=== PATIENT | male | born 1950 | race Caucasian/White ===

== ENCOUNTER 2018-08-04 19:58 | Inpatient (IN) ==
[2018-08-04] MEDS ORDERED: IOPAMIDOL 100 ML BOTTLE IV ONE (19:59)
[2018-08-04] MEDS ORDERED: HYDROmorphone 2 MG/ML VIAL IV PRN (20:24)
[2018-08-04] MEDS ORDERED: 0.9 % SODIUM CHLORIDE 1,000 ML IV ONE (20:24)
[2018-08-04] MEDS ORDERED: ONDANSETRON 4 MG/2 ML VIAL IV ONE (20:24)
--- NOTE | 2018-08-04 20:29 | Emergency Department Note ---
Abdominal Pain HPI - General Chief Complaint: Abdominal Pain Stated Complaint: Right side MidAbdominal pain Time Seen by Provider: 08/04/18 20:13 Source: patient Mode of arrival: ambulatory Limitations: no limitations - History of Present Illness HPI Narrative: 67-year-old male with right upper quadrant pain after eating a meal of steak and mashed potatoes with gravy. He had a stop eating secondary to nausea. He has never had anything like this before. The pain cause some gasping for breath and so we put him on oxygen. He is not on oxygen at home - Related Data Home Medications Medication Instructions Recorded Confirmed Apixaban [Eliquis] 5 mg PO HS 08/05/18 08/05/18 Dicyclomine 20 mg PO HS 08/05/18 08/05/18 Divalproex Sodium [Depakote] 250 mg PO HS 08/05/18 08/05/18 Ketoconazole 2% Top Crm [Nizoral 1 applic TOPICAL QDAY PRN 08/05/18 08/05/18 2% Top Crm] Previous Rx's Medication Instructions Recorded pravastatin 40 mg tablet 40 mg PO QHS #90 tab 01/19/18 pramipexole 0.25 mg tablet 0.25 mg PO QHS #90 tab 02/25/18 Allergies Allergy/AdvReac Type Severity Reaction Status Date / Time Penicillins Allergy Unknown Unknown Verified 08/04/18 20:03 Review of Systems All systems ED: reviewed and negative except as stated. Abdominal Pain PMH - Past Medical History Attestation: Yes: The following information was validated with the patient. FORMERLY [facility], [facility] Narrative: Family History (Last Reviewed 05/07/18 @ 09:54 by Steven Pacheco DO) Father Cardiac disease, Onset Age: 60 Medical History (Last Reviewed 05/07/18 @ 09:54 by Steven Pacheco DO) Venous insufficiency (Chronic) Sebaceous cyst (Chronic) Restless leg syndrome (Chronic) Developmental mental disorder (Chronic) DVT (deep venous thrombosis) (Chronic) Borderline diabetes mellitus (Chronic) Hyperlipidemia (Chronic) Learning disability (Chronic) Pilonidal cyst (Chronic) Hernia, umbilical (Chronic) Chronic obstructive pulmonary disease (Chronic 06/06/14) High risk 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 Wearing nasal cannula oxygen. Normocephalic atraumatic. Conjunctive are clear sclerae nonicteric. No nasal discharge or congestion. Oropharynx pink and moist. Heart is regular rate and rhythm no murmur appreciated. Lungs clear to auscultation bilaterally without wheezes rales rhonchi respirations rest. Abdomen is soft nontender nondistended except the right upper quadrant with positive Smallwood sign. No peritoneal signs or guarding. Left leg is normal but the right leg shows a chronic venous stasis changes with warmth and cord consistent with superficial thrombophlebitis. He is on apixaban per clinic note. He does mentate about the level of 7-year-old or so and so much history is obtained from family Course Vital Signs Temperature 99.6 F H 08/04/18 19:58 Pulse Rate 88 08/04/18 19:58 Respiratory Rate 20 08/04/18 19:58 Blood Pressure 130/69 08/04/18 19:58 Pulse Oximetry (%) 93 08/04/18 19:58 Temperature 97.9 F 08/05/18 08:00 Pulse Rate 67 08/05/18 08:00 Respiratory Rate 18 08/05/18 08:00 Blood Pressure 102/66 08/05/18 08:00 Pulse Oximetry (%) 92 08/05/18 08:00 Abdominal Pain - Lab Data Lab results reviewed: Yes I reviewed the patient's lab results. Result diagrams: 08/04/18 20:29 08/04/18 20:29 Lab Results 08/04/18 08/04/18 08/04/18 Range/Units 20:29 20:29 20:29 WBC 19.5 H (4.5-11.0) K/mcL RBC 4.99 (4.50-5.90) M/mcL Hgb 14.9 (13.5-16.5) g/dL Hct 45.2 (41.0-55.0) % MCV 90.5 (80.0-100.0) fL MCH 29.9 (26.0-34.0) pg MCHC 33.0 (31.0-36.0) g/dL RDW 14.5 (11.5-14.5) % Plt Count 236 (140-440) K/mcL MPV 8.6 (7.4-10.4) fL Gran % 86.9 H (38.0-78.0) % Lymph % (Auto) 6.6 L (15.5-49.0) % Hanson % (Auto) 5.5 (1.0-12.0) % Eos % (Auto) 0.8 (0.0-7.0) % Baso % (Auto) 0.2 (0.0-2.0) % Gran # 16.9 H (1.8-8.0) K/mcL Lymph # (Auto) 1.3 L (1.5-4.8) K/mcL Hanson # (Auto) 1.1 H (0.1-0.9) K/mcL Eos # (Auto) 0.2 (0.0-0.7) K/mcL Baso # (Auto) 0 (0.0-0.3) K/mcL VBG Lactic Acid 1.2 (0.5-2.0) mmol/L Sodium 140 (133-145) mmol/L Potassium 4.6 (3.3-5.1) mmol/L Chloride 105 (96-108) mmol/L Carbon Dioxide 22 (22-30) mmol/L Anion Gap 13.0 (8-16) BUN 23 (8-23) mg/dl Creatinine 1.2 (0.7-1.2) mg/dl GFR Calculation 63 Glucose 80 (70-105) mg/dL Calcium 9.2 (8.6-10.4) mg/dl Total Bilirubin 0.6 (0.0-1.0) mg/dL AST 21 (0-37) U/l ALT 12 (0-40) U/l Alkaline Phosphatase 113 (39-117) U/L Total Protein 7.7 (5.9-8.4) gm/dL Albumin 4.1 (3.2-5.2) gm/dL Globulin 3.6 (2.2-3.7) gm/dL Albumin/Globulin Ratio 1.1 (1.0-2.3) Amylase 58 (28-100) U/L Lipase 17 (7-60) U/L - Radiology Data Radiology results reviewed: Yes I reviewed the patient's radiology results. Ultrasound gallbladder shows sludge non-thickened muniz. Ultrasound of the right leg shows chronic nonocclusive DVT. When compared to previous no change Chest x-ray shows emphysematous changes and possibly new infiltrate left lower lung but this is equivocal. CT scan ordered to further sort this out in light of his hypoxia Disposition Pt seen by THREAD CHECKER/PA only: No Clinical Impression: RUQ pain Chronic obstructive pulmonary disease Qualifiers: COPD type: unspecified COPD Qualified Code(s): J44.9 - Chronic obstructive pulmonary disease, unspecified DVT (deep venous thrombosis) Qualifiers: DVT location: lower extremity Affected thrombotic vein of extremity: unspecified vein of extremity Chronicity: chronic Laterality: right Qualified Co de(s): I82.501 - Chronic embolism and thrombosis of unspecified deep veins of right lower extremity Cellulitis Qualifiers: Site of cellulitis: extremity Site of cellulitis of extremity: lower extremity Laterality: right Qualified Code(s): L03.115 - Cellulitis of right lower limb Summary: Likely cholecystitis versus upper GI issue like gastritis. Start pain management along with Zofran and IV fluids. Work-up with ultrasound of ga llbladder and liver along with laboratory. Coincidentally noted likely superficial thrombophlebitis versus cellulitis. Also noted patient is requiring oxygen to keep saturations up. Will order ultr asound of the right leg as well Ultrasound showed sludge of the gallbladder but no acute cholecystitis. Ultrasound of the right lower leg shows chronic DVT unchanged from previous Blood cultures and started antibiotics with clindamycin Chest x-ray is basically unrevealing except for perhaps mildly increased opacity left lower lung equivocal for perhaps mild pneumonia. CT scan is ordered for t his and hypoxia. He is requiring 2 L oxygen he still dropping down into the 80s. DuoNeb treatment ordered but this did not help much. CT scan does not show a reason for his hypoxia except for perhaps mild alveolitis. I gave him a dose of Solu-Medrol Laboratory shows a high white count 19 likely from cellulitis. Discussed with Dr. Knox, hospitalist who recommended that we change antibiotics to vancomycin and Zosyn. However he is allergic to penicillin so I added Levaquin instead After getting all his studies back we do not have a clear reason for his hypoxia which continues-he is requiring 4 L now at times to keep his sats above 90%. This does seem relatively stable and as noted above chest x-ray and CT scan are unrevealing except for mild COPD We will admit the patient to Dr. Knox for cellulitis. Continue oxygen therapy. I wrote holding orders Disposition: [facility]fer As [facility]pt ([facility]) Condition: Fair
[2018-08-04 21:28] LABS: Basophils # (Auto) 0 K/mcL (0.0-0.3); Basophils % (Auto) 0.2 % (0.0-2.0); Eosinophils # (Auto) 0.2 K/mcL (0.0-0.7); Eosinophils % (Auto) 0.8 % (0.0-7.0); Granulocytes % (Auto) 86.9 % (38.0-78.0); Hematocrit 45.2 % (41.0-55.0); Hemoglobin 14.9 g/dL (13.5-16.5); Lymphocytes # (Auto) 1.3 K/mcL (1.5-4.8); Lymphocytes % (Auto) 6.6 % (15.5-49.0); Mean Cell Volume 90.5 fL (80.0-100.0); Mean Platelet Volume 8.6 fL (7.4-10.4); Monocytes # (Auto) 1.1 K/mcL (0.1-0.9); Monocytes % (Auto) 5.5 % (1.0-12.0); Platelet Count 236 K/mcL (140-440); RBC 4.99 M/mcL (4.50-5.90); Red Cell Distribution Width 14.5 % (11.5-14.5); WBC 19.5 K/mcL (4.5-11.0)
[2018-08-04 21:45] LABS: ALT/SGPT 12 U/l (0-40); AST/SGOT 21 U/l (0-37); Albumin 4.1 gm/dL (3.2-5.2); Albumin/Globulin Ratio 1.1 (1.0-2.3); Alkaline Phosphatase 113 U/L (39-117); Amylase 58 U/L (28-100); Bilirubin,Total 0.6 mg/dL (0.0-1.0); Blood Urea Nitrogen 23 mg/dl (8-23); Calcium 9.2 mg/dl (8.6-10.4); Carbon Dioxide 22 mmol/L (22-30); Chloride 105 mmol/L (96-108); Globulin 3.6 gm/dL (2.2-3.7); Glomerular Filtration Rate 63; Glucose 80 mg/dL (70-105); Lipase 17 U/L (7-60); Potassium 4.6 mmol/L (3.3-5.1); Sodium 140 mmol/L (133-145)
[2018-08-04] MEDS ORDERED: CLINDAMYCIN 150 MG CAPSULE PO ONE (21:55)
[2018-08-04] MEDS ORDERED: IPRATROPIUM/ALBUTEROL 3 ML AMPUL.NEB NEB ONE (22:21)
[2018-08-04] MEDS ORDERED: methylPREDNISolone SOD SUCC 125 MG/2 ML VIAL IV ONE (23:58)
[2018-08-05] MEDS ORDERED: VANCOMYCIN 1,000 MG in 0.9 % SODIUM CHLORIDE 250 ML IV ONE (00:18)
[2018-08-05] MEDS ORDERED: ONDANSETRON 4 MG/2 ML VIAL IV PRN (00:20)
[2018-08-05] MEDS ORDERED: HYDROcodone/APAP 5/325MG TABLET PO PRN (00:20)
[2018-08-05] MEDS ORDERED: NALOXONE HCL 0.4 MG/ML VIAL IV PRN (00:20)
[2018-08-05] MEDS: 0.9 % SODIUM CHLORIDE 1,000 ML IV SCH ×3 (02:17→19:05)
[2018-08-05] MEDS: LEVOFLOXACIN 500 MG/100 ML BAG IV SCH (02:30)
[2018-08-05] MEDS: ACETAMINOPHEN 325 MG TABLET PO PRN ×2 (02:59→20:52)
--- NOTE | 2018-08-05 07:48 | Ultrasound Report ---
History: Right upper quadrant pain after eating FINDINGS: The liver is normal in size. High in the right lobe there is a well-circumscribed oval-shaped hyperechoic nodule which measures 0.6 x 0.7 x 1.2 cm. The remainder of the liver is homogeneous. Doppler shows normal blood flow in the hepatic and portal veins. Gallbladder is normal in size but contains some sludge. There are no stones. The wall is normal in thickness and there is no tenderness while scanning over the gallbladder. The bile ducts are normal in caliber and the common duct measures 4.2 mm. The right kidney is normal in size shape and echogenicity and there is no kidney stone or hydronephrosis. The pancreas is obscured by overlying bowel gas. No ascites is seen. IMPRESSION: Sludge in the gallbladder 1.2 cm nodule in the right lobe of liver. This is probably a hemangioma. This could be further evaluated by an upper abdomen CT using hemangioma protocol and intravenous contrast. Interpreted and Authenticated by: Javon Edouard 08/05/18
--- NOTE | 2018-08-05 08:01 | Ultrasound Report ---
History: Superficial thrombophlebitis and history of chronic clot FINDINGS: There is thrombus in the right leg from the mid superficial femoral vein to the proximal popliteal vein. The vessels are not completely occluded. There appears to have been partial recanalization. The proximal superficial femoral and common femoral veins are normal. Distal popliteal vein is normal. There is good blood flow in the calf. Greater and lesser saphenous veins are patent. IMPRESSION: Chronic, nonocclusive organized clot from the mid superficial femoral vein to the proximal popliteal vein Interpreted and Authenticated by: Javon Edouard 08/05/18
--- NOTE | 2018-08-05 08:06 | XRay Report ---
HISTORY: COPD with shortness of breath FINDINGS: Lateral view shows the lungs are mildly hyperinflated. There are mildly prominent increased interstitial lung markings bilaterally. There is no consolidating infiltrate, mass or congestive heart failure. No pleural effusion is present. The heart is borderline enlarged. The aorta is tortuous. The spine has a kyphoscoliotic curvature. IMPRESSION: Mild COPD. There may be superimposed interstitial inflammation. Interpreted and Authenticated by: Javon Edouard 08/05/18
--- NOTE | 2018-08-05 08:16 | Cat Scan Report ---
CLINICAL INFORMATION: Hypoxia COMPARISON: None TECHNIQUE: Axial images obtained through the chest. intravenous contrast administration was administered, and scanning was performed during pulmonary arterial phase. Sagittally and coronally reformatted images were obtained. MIP reformatted images. The radiation exposure was limited using dose reduction technology. FINDINGS: There is very mild centrilobular emphysema in both lung apices. Subtle groundglass alveolar opacities are present in the lingula and left upper lobe. There is no lobar consolidation. There are small bands of atelectasis in the posterior lung bases, left greater than right. The central pulmonary arteries are normal without evidence of emboli. Some of the smaller peripheral vessels are more difficult to visualize but there is no obvious pulmonary embolus. The aorta is normal in caliber. There are couple small plaques along the wall of the arch. Coronary arteries are noncalcified. The heart is borderline enlarged. There is no pericardial or pleural effusion. Incidentally noted are several paraesophageal varices in the mid and upper thorax. IMPRESSION: Mild COPD and mild alveolitis in the left upper lobe and lingula Mild discoid atelectasis in the posterior lung bases No evidence of pulmonary emboli Borderline cardiomegaly Interpreted and Authenticated by: Javon Edouard 08/05/18
--- NOTE | 2018-08-05 09:54 | Internal Med History&Physical ---
Medical - H&P: HPI Patient information: Note initiated : 08/05/18 at 9:48 am Service Date, if different from initiated Date: [] Patient: Tobias Richards a 67 y/o M admitted on 08/05/18 for Right side MidAbdominal pain. Chief Complaint: [] Chief complaint: cough, Rt Flank pain History of present illness: Mr. Richards is a 67 year old M with H/o DVT on anticoagulation, COPD who presents to the ER with 2 days' onset of cough along with right lower chest/flank pain. He denied associated fever or palpitations or chills. Endorses to gradual progressive shortness of breath along with you per sputum. Denies sick contacts or changes in medications. Initial workup in the ER was consistent with sepsis with an clear etiology with a white count 19.5. Renal ultrasound/chest. Remarkable for acute process. Hospitalist service was consulted in light of sepsis of unclear origin. At the time of evaluation patient is alert and oriented. He endorses to history as above. Denies drenching sweats, shaking chills, dysuria, diarrhea, rash or joint pain he further denies headache, photophobia, projectile vomiting. He denies sick contacts. Denies travel outside the [place] or unprotected sexual intercourse. He lives with his girlfriend. Review of systems A 10 point review systems was performed and is negative except as discussed above Medical - H&P: PMH Medical history: Venous insufficiency (Chronic) Sebaceous cyst (Chronic) Restless leg syndrome (Chronic) Developmental mental disorder (Chronic) DVT (deep venous thrombosis) (Chronic) 05/02/2015-[place] Borderline diabetes mellitus (Chronic) a1c is 5.1 07/01/16, down from 5.8, low carb diet, good physical activity advised. Hyperlipidemia (Chronic) LDL is 109, goal LDL < 130, on pravastatin 40 continue same. CMP ok, tolerating medication well. 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 [employer] smoking status: Former smoker quit date: 04/15/15 pack-years: 26 alcohol intake frequency: former alcohol drinker substance use type: does not use Medical - H&P: Meds Home Medications Medication Instructions Recorded Confirmed Type pravastatin 40 mg tablet 40 mg PO QHS #90 tab 01/19/18 08/05/18 Rx pramipexole 0.25 mg tablet 0.25 mg PO QHS #90 tab 02/25/18 08/05/18 Rx Apixaban [Eliquis] 5 mg PO HS 08/05/18 08/05/18 History Dicyclomine 20 mg PO HS 08/05/18 08/05/18 History Divalproex Sodium [Depakote] 250 mg PO HS 08/05/18 08/05/18 History Ketoconazole 2% Top Crm [Nizoral 1 applic TOPICAL QDAY PRN 08/05/18 08/05/18 History 2% Top Crm] Allergies Allergy/AdvReac Type Severity Reaction Status Date / Time Penicillins Allergy Unknown Unknown Verified 08/04/18 20:03 Medical - H&P: Exam - Constitutional Vitals: Temp Pulse Resp BP Pulse Ox 97.9 F 67 18 102/66 92 08/05/18 08:00 08/05/18 08:00 08/05/18 08:00 08/05/18 08:00 08/05/18 08:00 General appearance: no acute distress Exam: Alert and oriented Nonlabored breathing Head normocephalic Neck nolymphadenopathy Oral cavity dry no ear or nose discharge S1 and S2 regular rhythm no murmur Diminished breath sounds bases abdomen soft nontender Lower extremity no cyanosis clubbing or joint swelling , bright lower extremity excoriated skin/xerosis around the ankle but no erythema or discharge Skin no suspicious lesion Psych alert cooperative Neuro nonfocal Medical - H&P: Reslt - Labs CBC & Chem 7: 08/04/18 20:29 08/04/18 20:29 Labs: Short CBC 08/04/18 Range/Units 20:29 WBC 19.5 H (4.5-11.0) K/mcL Hgb 14.9 (13.5-16.5) g/dL Hct 45.2 (41.0-55.0) % Plt Count 236 (140-440) K/mcL BMP 08/04/18 20:29 Sodium 140 Potassium 4.6 Chloride 105 Carbon Dioxide 22 BUN 23 Creatinine 1.2 Glucose 80 Calcium 9.2 Liver Function 08/04/18 Range/Units 20:29 Total Bilirubin 0.6 (0.0-1.0) mg/dL AST 21 (0-37) U/l ALT 12 (0-40) U/l Alkaline Phosphatase 113 (39-117) U/L Albumin 4.1 (3.2-5.2) gm/dL Medical - H&P: A/P (1) Sepsis associated hypotension Current visit: Yes Status: Acute * Sepsis associated with hypotension-clinically improving crystalloids and management per guidelines/antibiotic coverage. Unclear etiology based on abdominal ultrasound/CT. Await UA * COPD exacerbation continue bronchodilators/steroids * History of DVT continue anti-coagulation * Hyperlipidemia continue statin * Restless leg syndrome continue pramipexole * Left ankle xerosis/excoriated skin-local emollients/wound care nurse consult * Full code * Prophylaxis-anticoagulation Plan * Inpatient admission * Antibiotic coverage * Sepsis management per guidelines * Prior medical condition management as above * PT OT/wound care nurse consult Medical - H&P: Qual - VTE Deep Vein Thrombosis/Pulmonary Embolism Present on Admission: Yes
[2018-08-05] MEDS: APIXABAN 5 MG TABLET PO SCH ×2 (11:02→20:51)
[2018-08-05] MEDS: predniSONE 20 MG TABLET PO SCH (11:02)
[2018-08-05] MEDS: IPRATROPIUM/ALBUTEROL 3 ML AMPUL.NEB NEB SCH ×4 (11:59→22:18)
[2018-08-05] MEDS: BUDESONIDE 0.5 MG/2 ML AMPUL.NEB NEB SCH ×3 (12:00→19:27)
[2018-08-05 13:31] LABS: Appearance,Urine CLEAR; Bacteria,Urine 0 /hpf (0); Bilirubin,Urine NEG (NEG); Color,Urine YELLOW; Glucose,Urine (UA) NEGATIVE (NEG); Ketones,Urine NEG (NEG); Leukocyte Esterase,Urine NEG /uL (NEG); Nitrate,Urine NEG (NEG); Protein,Urine NEG (NEG); Urine Blood 0.03 mg/dL (<0.03); Urine RBC < 1 /hpf (0-1); Urine Squamous Epithelial Cell 0 /hpf (0-4); Urine WBC 1 /hpf (0-4); Urobilinogen,Urine NEG (NEG)
[2018-08-05] MEDS ORDERED: BUDESONIDE 0.5 MG/2 ML AMPUL.NEB NEB ONE (14:45)
[2018-08-05] MEDS: SIMVASTATIN 20 MG TABLET PO SCH (20:51)
[2018-08-05] MEDS: DIVALPROEX 125 MG CAP.SPRINK PO SCH (20:52)
[2018-08-05] MEDS: DICYCLOMINE 20 MG TABLET PO SCH (20:52)
[2018-08-05] MEDS: PRAMIPEXOLE 0.25 MG TABLET PO SCH (20:55)
[2018-08-05] MEDS ORDERED: traZODone HCL 50 MG TABLET PO ONE (22:40)
[2018-08-05] MEDS ORDERED: traZODone HCL 50 MG TABLET ONE (22:46)
[2018-08-06] MEDS: LEVOFLOXACIN 500 MG/100 ML BAG IV SCH (00:34)
[2018-08-06] MEDS: IPRATROPIUM/ALBUTEROL 3 ML AMPUL.NEB NEB SCH ×4 (03:01→19:00)
[2018-08-06] MEDS: 0.9 % SODIUM CHLORIDE 1,000 ML IV SCH ×2 (05:38→18:03)
[2018-08-06 06:34] LABS: Hematocrit 37.4 % (41.0-55.0); Hemoglobin 12.4 g/dL (13.5-16.5); Mean Corpuscular HGB Conc 33.1 g/dL (31.0-36.0); Mean Platelet Volume 8.4 fL (7.4-10.4); Platelet Count 184 K/mcL (140-440); RBC 4.06 M/mcL (4.50-5.90); Red Cell Distribution Width 14.5 % (11.5-14.5); WBC 23.1 K/mcL (4.5-11.0)
[2018-08-06 06:48] LABS: ALT/SGPT 11 U/l (0-40); AST/SGOT 16 U/l (0-37); Albumin 3.1 gm/dL (3.2-5.2); Albumin/Globulin Ratio 1.1 (1.0-2.3); Alkaline Phosphatase 85 U/L (39-117); Bilirubin,Direct < 0.2 mg/dL (0.0-0.3); Bilirubin,Total 0.3 mg/dL (0.0-1.0); Blood Urea Nitrogen 16 mg/dl (8-23); Calcium 8.3 mg/dl (8.6-10.4); Carbon Dioxide 19 mmol/L (22-30); Chloride 110 mmol/L (96-108); Globulin 2.9 gm/dL (2.2-3.7); Glomerular Filtration Rate 89; Glucose 85 mg/dL (70-105); Lactate Dehydrogenase 225 U/L (94-250); Magnesium 1.7 mg/dL (1.6-2.5); Phosphorous 2.8 mg/dL (2.7-4.5); Potassium 4.2 mmol/L (3.3-5.1); Sodium 141 mmol/L (133-145); Triglycerides 55 mg/dl (<150); Uric Acid 4.4 mg/dL (2.5-8.0)
[2018-08-06] MEDS: BUDESONIDE 0.5 MG/2 ML AMPUL.NEB NEB SCH ×2 (07:36→19:00)
[2018-08-06] MEDS: predniSONE 20 MG TABLET PO SCH (08:13)
[2018-08-06] MEDS: APIXABAN 5 MG TABLET PO SCH ×2 (08:13→21:11)
[2018-08-06 08:27] LABS: Anisocytosis FEW (NONE SEEN); Band Neutrophils % 2 % (0-10); Lymphocytes % 6 % (15-49); Monocytes % (Manual) 6 % (1-12); Platelet Estimate NORMAL (NORMAL); RBC Morphology ABNORM (NORMAL); Segmented Neutrophils % 86 % (38-78)
--- NOTE | 2018-08-06 10:27 | Internal Med Progress Note ---
Medical - PN: Subj Patient information: Note initiated : 08/06/18 at 10:23 am Service Date, if different from initiated Date: [] Patient: Tobias Richards a 67 y/o M admitted on 08/05/18 for Right side MidAbdominal pain. Chief Complaint: [] Interval history: Mr. Richards is a 67 year old M with H/o developmental delay, DVT on anticoagulation, COPD who presents to the ER with 2 days' onset of cough along with right lower chest/flank pain. He denied associated fever or palpitations or chills. Endorses to gradual progressive shortness of breath along with you per sputum. Denies sick contacts or changes in medications. Initial workup in the ER was consistent with sepsis with an clear etiology with a white count 19.5. Renal ultrasound/chest. Remarkable for acute process. Hospitalist service was consulted in light of sepsis of unclear origin. At the time of evaluation patient is alert and oriented. He endorses to history as above. Denies drenching sweats, shaking chills, dysuria, diarrhea, rash or joint pain he further denies headache, photophobia, projectile vomiting. He denies sick contacts. Denies travel outside the [place] or unprotected sexual intercourse. He lives with his girlfriend. 08/06-patient did remarkably well in the last 24 hours, bronchodilators, steroids. Much improved breathing. willing to participate in physical therapy. Ongoing bronchodilator treatments. However elevated white count of 20,000 likely secondary to steroid. Afebrile. No overnight concerns per nursing staff. No telemetry events. Denies flank pain, shaking chills. Chest pain resolved. - Constitutional Vitals: Vital Signs Temp Pulse Resp BP Pulse Ox 97.7 F 72 16 127/84 94 08/06/18 07:27 08/06/18 07:39 08/06/18 07:39 08/06/18 07:27 08/06/18 07:50 Period Temp Pulse Resp BP Sys/Morley Pulse Ox Last 24 Hr 97.7 F-99.0 F 66-74 16-24 96-127/58-84 91-97 Intake and Output 08/05/18 08/06/18 08/06/18 21:59 05:59 13:59 Intake Total 905 1750 Output Total 1225 350 900 Balance -320 1400 -900 Weight 135 lb Intake & Output: Intake & Output 08/05/18 08/06/18 08/06/18 21:59 05:59 13:59 Intake Total 905 1750 Output Total 1225 350 900 Balance -320 1400 -900 Weight 135 lb Intake: IV 805 1100 Sodium Chloride 0.9% 1,000 ml @ 805 1000 100 mls/hr IV .Q10H PERRI Rx#: [id number] Oral 100 650 Output: Void Amount 1225 350 900 Other: Urine Appearance Clear Clear Clear Urine Color Dark Yellow Bright Yellow Light Odalys Urine Odor Normal Normal # Voids 1 General appearance: no acute distress Exam: Alert and pleasant Nonlabored breathing, no rhonchi S1-S2 regular rhythm Abdomen soft No anxiety Medical - PN: Obj Da - Labs CBC & Chem 7: 08/06/18 04:05 08/06/18 04:05 Labs: Abnormal Lab Results 08/06/18 08/06/18 08/05/18 04:05 04:05 12:50 WBC 23.1 H RBC 4.06 L Hgb 12.4 L Hct 37.4 L Gran % Lymph % (Auto) Gran # Lymph # (Auto) Nolan # (Auto) Seg Neutrophils % 86 H Lymphocytes % 6 L RBC Morphology Abnorm A Anisocytosis Few A Chloride 110 H Carbon Dioxide 19 L Calcium 8.3 L Albumin 3.1 L Urine Occult Blood 0.03 A 08/04/18 20:29 WBC 19.5 H RBC Hgb Hct Gran % 86.9 H Lymph % (Auto) 6.6 L Gran # 16.9 H Lymph # (Auto) 1.3 L Nolan # (Auto) 1.1 H Seg Neutrophils % Lymphocytes % RBC Morphology Anisocytosis Chloride Carbon Dioxide Calcium Albumin Urine Occult Blood Meds: Medications Acetaminophen (Tylenol) 650 mg PO Q6HP PRN PRN Reason: PAIN/FEVER > 101 Last Admin: 08/05/18 20:52 Dose: 650 mg Documented by: Hydrocodone Bitart/Acetaminophen ([place] 5/325mg) 1 tab PO Q4HP PRN PRN Reason: PAIN LEVEL 3-6 Albuterol/Ipratropium (Duoneb) 3 ml NEB Q6HRT [facility] Apixaban (Eliquis) 5 mg PO BID [facility] Last Admin: 08/06/18 08:13 Dose: 5 mg Documented by: Budesonide (Pulmicort) 0.5 mg NEB Q12 [facility] Last Admin: 08/06/18 07:36 Dose: 0.5 mg Documented by: Dicyclomine HCl (Dicyclomine) 20 mg PO [facility] Last Admin: 08/05/18 20:52 Dose: 20 mg Documented by: Divalproex Sodium (Depakote Sprinkles) 250 mg PO [facility] Last Admin: 08/05/18 20:52 Dose: 250 mg Documented by: Levofloxacin (Levaquin) 500 mg in 100 mls @ 100 mls/hr IV Q24H [facility] Last Infusion: 08/06/18 05:38 Dose: Infused Documented by: Sodium Chloride (Sodium Chloride 0.9%) 1,000 mls @ 100 mls/hr IV .Q10H [facility] Last Admin: 08/06/18 05:38 Dose: 100 mls/hr Documented by: Naloxone HCl (Narcan) 0.1 mg IV Q2MIN PRN PRN Reason: Opiate Reversal Ondansetron HCl (Zofran) 4 mg IV Q4HP PRN PRN Reason: Nausea And Vomiting Pramipexole Dihydrochloride (Mirapex) 0.25 mg PO [facility] Last Admin: 08/05/18 20:55 Dose: Not Given Documented by: Prednisone (Prednisone) 40 mg PO [facility] Last Admin: 08/06/18 08:13 Dose: 40 mg Documented by: Simvastatin (Zocor) 20 mg PO [facility] Last Admin: 08/05/18 20:51 Dose: 20 mg Documented by: Medical - PN: A/P - Time Spent With Patient Total time spent is greater than 50% in coordination of care (as documented) at patient's floor/unit and/or counseling patient: 25 - 35 minutes (1) Sepsis associated hypotension Status: Acute Assessment and plan: * COPD exacerbation remarkable clinical improvement noted on bronchodilators/steroids * Hypoxic respiratory failure currently and 2.5 L oxygen. Improved with bronchodilators and steroids. * Leukocytosis likely secondary to steroids * History of DVT continue anti-coagulation * Hyperlipidemia continue statin * Restless leg syndrome continue pramipexole * Left ankle xerosis/excoriated skin-local emollients/wound care nurse on board * Full code Plan * Continue steroids and bronchodilators * PT OT * Anticoagulation * Pre-existing medical condition management and home meds * DC planning Current Visit: Yes Medical - PN: Qual - VTE Deep Vein Thrombosis/Pulmonary Embolism Present on Admission: Yes
[2018-08-06] MEDS: DIVALPROEX 125 MG CAP.SPRINK PO SCH (21:11)
[2018-08-06] MEDS: DICYCLOMINE 20 MG TABLET PO SCH (21:11)
[2018-08-06] MEDS: rOPINIRole 0.25 MG TABLET PO SCH (21:11)
[2018-08-06] MEDS: SIMVASTATIN 20 MG TABLET PO SCH (21:11)
[2018-08-06] MEDS: PRAMIPEXOLE 0.25 MG TABLET PO SCH (21:12)
[2018-08-07] MEDS: LEVOFLOXACIN 500 MG/100 ML BAG IV SCH ×2 (00:10→15:48)
[2018-08-07] MEDS: IPRATROPIUM/ALBUTEROL 3 ML AMPUL.NEB NEB SCH ×3 (01:02→12:27)
[2018-08-07] MEDS: 0.9 % SODIUM CHLORIDE 1,000 ML IV SCH ×3 (05:32→17:25)
[2018-08-07 05:53] LABS: Hematocrit 37.7 % (41.0-55.0); Hemoglobin 12.4 g/dL (13.5-16.5); Mean Cell Volume 92.6 fL (80.0-100.0); Mean Platelet Volume 8.4 fL (7.4-10.4); Platelet Count 195 K/mcL (140-440); RBC 4.07 M/mcL (4.50-5.90); Red Cell Distribution Width 14.8 % (11.5-14.5); WBC 17.9 K/mcL (4.5-11.0)
[2018-08-07 06:14] LABS: ALT/SGPT 15 U/l (0-40); AST/SGOT 19 U/l (0-37); Albumin 3.2 gm/dL (3.2-5.2); Albumin/Globulin Ratio 1.1 (1.0-2.3); Alkaline Phosphatase 83 U/L (39-117); Bilirubin,Direct < 0.2 mg/dL (0.0-0.3); Bilirubin,Total 0.2 mg/dL (0.0-1.0); Blood Urea Nitrogen 13 mg/dl (8-23); Calcium 8.5 mg/dl (8.6-10.4); Carbon Dioxide 21 mmol/L (22-30); Chloride 109 mmol/L (96-108); Globulin 2.9 gm/dL (2.2-3.7); Glomerular Filtration Rate 93; Glucose 82 mg/dL (70-105); Lactate Dehydrogenase 184 U/L (94-250); Magnesium 1.7 mg/dL (1.6-2.5); Phosphorous 2.9 mg/dL (2.7-4.5); Potassium 3.9 mmol/L (3.3-5.1); Sodium 142 mmol/L (133-145); Triglycerides 52 mg/dl (<150); Uric Acid 4.2 mg/dL (2.5-8.0)
--- NOTE | 2018-08-07 08:03 | Internal Med Progress Note ---
Medical - PN: Subj Patient information: Note initiated : 08/07/18 at 8:01 am Service Date, if different from initiated Date: [] Patient: Tobias Richards a 67 y/o M admitted on 08/05/18 for Right side MidAbdominal pain. Chief Complaint: [] Interval history: Mr. Richards is a 67 year old M with H/o developmental delay, DVT on anticoagulation, COPD who presents to the ER with 2 days' onset of cough along with right lower chest/flank pain. He denied associated fever or palpitations or chills. Endorses to gradual progressive shortness of breath along with you per sputum. Denies sick contacts or changes in medications. Initial workup in the ER was consistent with sepsis with an clear etiology with a white count 19.5. Renal ultrasound/chest. Remarkable for acute process. Hospitalist service was consulted in light of sepsis of unclear origin. At the time of evaluation patient is alert and oriented. He endorses to history as above. Denies drenching sweats, shaking chills, dysuria, diarrhea, rash or joint pain he further denies headache, photophobia, projectile vomiting. He denies sick contacts. Denies travel outside the [place] or unprotected sexual intercourse. He lives with his girlfriend. 08/06-patient did remarkably well in the last 24 hours, bronchodilators, steroids. Much improved breathing. willing to participate in physical therapy. Ongoing bronchodilator treatments. However elevated white count of 20,000 likely secondary to steroid. Afebrile. No overnight concerns per nursing staff. No telemetry events. Denies flank pain, shaking chills. Chest pain resolved. 08/07-patient doing remarkably better. No shortness of breath, fever. White count down from 23.1-17.9. On 2 L nasal cannula. Continue PT OT. Anticipate discharge in 24 hours if continues to improve. Continue levofloxacin for additional 3 days - Constitutional Vitals: Vital Signs Temp Pulse Resp BP Pulse Ox 98.8 F 78 14 124/75 94 08/07/18 07:35 08/07/18 04:00 08/07/18 07:35 08/07/18 07:35 08/07/18 07:35 Period Temp Pulse Resp BP Sys/[place] Pulse Ox Last 24 Hr 97.9 F-98.8 F 67-90 14-22 110-124/61-80 91-94 Intake and Output 08/06/18 08/07/18 08/07/18 21:59 05:59 13:59 Intake Total 1800 1600 100 Output Total 900 1700 Balance 900 -100 100 Weight 140 lb 8 oz Intake & Output: Intake & Output 08/06/18 08/07/18 08/07/18 21:59 05:59 13:59 Intake Total 1800 1600 100 Output Total 900 1700 Balance 900 -100 100 Weight 140 lb 8 oz Intake: IV 1000 1000 100 Sodium Chloride 0.9% 1,000 ml @ 1000 1000 100 mls/hr IV .Q10H [facility] Rx#: [id number] Oral 800 600 Output: Void Amount 900 1700 Other: Meal Dinner Percent of Meal Consumed 100% Feeding Ability Assist with Tray Set Up Urine Color Pale Pale Urine Odor Normal Normal General appearance: no acute distress Exam: Alert oriented Nonlabored breathing No anxiety No lymphedema Medical - PN: Obj Da - Labs CBC & Chem 7: 08/07/18 04:12 08/07/18 04:10 Labs: Abnormal Lab Results 08/07/18 08/07/18 08/06/18 04:12 04:10 04:05 WBC 17.9 H RBC 4.07 L Hgb 12.4 L Hct 37.7 L RDW 14.8 H Gran % Lymph % (Auto) Gran # Lymph # (Auto) [place] # (Auto) Seg Neutrophils % Lymphocytes % RBC Morphology Anisocytosis Chloride 109 H 110 H Carbon Dioxide 21 L 19 L Calcium 8.5 L 8.3 L Albumin 3.1 L Urine Occult Blood 08/06/18 08/05/18 08/04/18 04:05 12:50 20:29 WBC 23.1 H 19.5 H RBC 4.06 L Hgb 12.4 L Hct 37.4 L RDW Gran % 86.9 H Lymph % (Auto) 6.6 L Gran # 16.9 H Lymph # (Auto) 1.3 L [place] # (Auto) 1.1 H Seg Neutrophils % 86 H Lymphocytes % 6 L RBC Morphology Abnorm A Anisocytosis Few A Chloride Carbon Dioxide Calcium Albumin Urine Occult Blood 0.03 A Meds: Medications Acetaminophen (Tylenol) 650 mg PO Q6HP PRN PRN Reason: PAIN/FEVER > 101 Last Admin: 08/05/18 20:52 Dose: 650 mg Documented by: Hydrocodone Bitart/Acetaminophen ([place] 5/325mg) 1 tab PO Q4HP PRN PRN Reason: PAIN LEVEL 3-6 Albuterol/Ipratropium (Duoneb) 3 ml NEB Q6HRT [facility] Last Admin: 08/07/18 01:02 Dose: 3 ml Documented by: Apixaban (Eliquis) 5 mg PO BID [facility] Last Admin: 08/06/18 21:11 Dose: 5 mg Documented by: Budesonide (Pulmicort) 0.5 mg NEB Q12 [facility] Last Admin: 08/06/18 19:00 Dose: 0.5 mg Documented by: Dicyclomine HCl (Dicyclomine) 20 mg PO [facility] Last Admin: 08/06/18 21:11 Dose: 20 mg Documented by: Divalproex Sodium (Depakote Sprinkles) 250 mg PO [facility] Last Admin: 08/06/18 21:11 Dose: 250 mg Documented by: Sodium Chloride (Sodium Chloride 0.9%) 1,000 mls @ 100 mls/hr IV .Q10H [facility] Last Admin: 08/07/18 05:32 Dose: 100 mls/hr Documented by: Levofloxacin (Levaquin) 500 mg in 100 mls @ 100 mls/hr IV Q24H [facility] Naloxone HCl (Narcan) 0.1 mg IV Q2MIN PRN PRN Reason: Opiate Reversal Ondansetron HCl (Zofran) 4 mg IV Q4HP PRN PRN Reason: Nausea And Vomiting Pramipexole Dihydrochloride (Mirapex) 0.25 mg PO [facility] Last Admin: 08/06/18 21:12 Dose: Not Given Documented by: Prednisone (Prednisone) 40 mg PO [facility] Last Admin: 08/06/18 08:13 Dose: 40 mg Documented by: Ropinirole HCl (Requip) 0.25 mg PO [facility] Last Admin: 08/06/18 21:11 Dose: 0.25 mg Documented by: Simvastatin (Zocor) 20 mg PO [facility] Last Admin: 08/06/18 21:11 Dose: 20 mg Documented by: Medical - PN: A/P - Time Spent With Patient Total time spent is greater than 50% in coordination of care (as documented) at patient's floor/unit and/or counseling patient: 15 - 24 minutes (1) Sepsis associated hypotension Status: Acute Assessment and plan: * COPD exacerbation - continued clinical improvement noted with treatments on bronchodilators/steroids. Continue additional 3 days Levaquin * Hypoxic respiratory failure- gradual clinical improvement and now on 2 L oxygen. Attempt to wean. Scheduled outpatient pulmonary function tests on discharge * Leukocytosis likely secondary to steroids. Downtrending now at 17.9 * History of DVT continue anti-coagulation on Apixiban * Hyperlipidemia continue statin * Restless leg syndrome continue pramipexole * Left ankle xerosis/excoriated skin-local emollients/wound care nurse on board * Full code Plan * PT OT * Bronchodilators and steroid * Continue Levaquin for additional 3 days * Anticoagulation * Continue Pre-existing medical condition management and home meds * Discharge in a.m. Current Visit: Yes Medical - PN: Qual - VTE Deep Vein Thrombosis/Pulmonary Embolism Present on Admission: Yes
[2018-08-07] MEDS: APIXABAN 5 MG TABLET PO SCH ×2 (08:08→20:20)
[2018-08-07] MEDS: predniSONE 20 MG TABLET PO SCH (08:08)
[2018-08-07 10:30] LABS: Band Neutrophils % 11 % (0-10); Lymphocytes % 17 % (15-49); Monocytes % (Manual) 7 % (1-12); Platelet Estimate NORMAL (NORMAL); RBC Morphology NORMAL (NORMAL); Reactive Lymphocytes 1 % (0-2); Segmented Neutrophils % 64 % (38-78)
[2018-08-07] MEDS: BUDESONIDE 0.5 MG/2 ML AMPUL.NEB NEB SCH (12:28)
--- NOTE | 2018-08-07 13:24 | Internal Med Progress Note ---
Medical - PN: Subj Patient information: Note initiated : 08/07/18 at 1:19 pm Service Date, if different from initiated Date: [] Patient: Tobias Richards a 67 y/o M admitted on 08/05/18 for Right side MidAbdominal pain. Chief Complaint: [] Interval history: Mr. Richards is a 67 year old M with H/o developmental delay, DVT on anticoagulation, COPD who presents to the ER with 2 days' onset of cough along with right lower chest/flank pain. He denied associated fever or palpitations or chills. Endorses to gradual progressive shortness of breath along with you per sputum. Denies sick contacts or changes in medications. Initial workup in the ER was consistent with sepsis with an clear etiology with a white count 19.5. Renal ultrasound/chest. Remarkable for acute process. Hospitalist service was consulted in light of sepsis of unclear origin. At the time of evaluation patient is alert and oriented. He endorses to history as above. Denies drenching sweats, shaking chills, dysuria, diarrhea, rash or joint pain he further denies headache, photophobia, projectile vomiting. He denies sick contacts. Denies travel outside the [place] or unprotected sexual intercourse. He lives with his girlfriend. 08/06-patient did remarkably well in the last 24 hours, bronchodilators, steroids. Much improved breathing. willing to participate in physical therapy. Ongoing bronchodilator treatments. However elevated white count of 20,000 likely secondary to steroid. Afebrile. No overnight concerns per nursing staff. No telemetry events. Denies flank pain, shaking chills. Chest pain resolved. 08/07-patient doing remarkably better. No shortness of breath, fever. White count down from 23.1-17.9. On 2 L nasal cannula. Continue PT OT. Anticipate discharge in 24 hours if continues to improve. Continue levofloxacin for additional 3 days 08/08 Morning will monitor pulse ox And get RT to assess for home oxygen. Has cough and slept well. Breathing improved. No shortness of breath. - Constitutional Vitals: Vital Signs Temp Pulse Resp BP Pulse Ox 98.7 F 76 18 118/72 93 08/07/18 11:02 08/07/18 12:28 08/07/18 12:28 08/07/18 11:02 08/07/18 12:28 Period Temp Pulse Resp BP Sys/Morley Pulse Ox Last 24 Hr 97.9 F-98.8 F 67-101 14-20 110-124/61-75 85-94 Intake and Output 08/06/18 08/07/18 08/07/18 21:59 05:59 13:59 Intake Total 1800 1600 100 Output Total 900 1700 1100 Balance 900 -100 -1000 Weight 63.73 kg Intake & Output: Intake & Output 08/06/18 08/07/18 08/07/18 21:59 05:59 13:59 Intake Total 1800 1600 100 Output Total 900 1700 1100 Balance 900 -100 -1000 Weight 63.73 kg Intake: IV 1000 1000 100 Sodium Chloride 0.9% 1,000 ml @ 1000 1000 100 mls/hr IV .Q10H [facility] Rx#: [id number] Oral 800 600 Output: Void Amount 900 1700 1100 Other: Meal Dinner Percent of Meal Consumed 100% Feeding Ability Assist with Tray Set Up Urine Color Pale Pale Urine Odor Normal Normal # Voids 1 Exam: General: Alert, Awake, No acute Distress Eyes/N/T: EOMI, Head/Neck: neck supple, CV: RRR, No murmurs, normal s1/s2 Pulm: Prolonged expiratory phase, no rhonchi rales or wheezing. Abd: soft, nontender, +BS x4 Ext: no clubbing/cyanosis/edema Neuro: Alert, no focal deficits, moves all extremities, Skin: warm/dry Medical - PN: Obj Da - Labs CBC & Chem 7: 08/08/18 04:15 08/08/18 04:15 Labs: Abnormal Lab Results 08/07/18 08/07/18 08/06/18 04:12 04:10 04:05 WBC 17.9 H RBC 4.07 L Hgb 12.4 L Hct 37.7 L RDW 14.8 H Gran % Lymph % (Auto) Gran # Lymph # (Auto) [place] # (Auto) Seg Neutrophils % Band Neutrophils % 11 H Lymphocytes % RBC Morphology Anisocytosis Chloride 109 H 110 H Carbon Dioxide 21 L 19 L Calcium 8.5 L 8.3 L Albumin 3.1 L Urine Occult Blood 08/06/18 08/05/18 08/04/18 04:05 12:50 20:29 WBC 23.1 H 19.5 H RBC 4.06 L Hgb 12.4 L Hct 37.4 L RDW Gran % 86.9 H Lymph % (Auto) 6.6 L Gran # 16.9 H Lymph # (Auto) 1.3 L [place] # (Auto) 1.1 H Seg Neutrophils % 86 H Band Neutrophils % Lymphocytes % 6 L RBC Morphology Abnorm A Anisocytosis Few A Chloride Carbon Dioxide Calcium Albumin Urine Occult Blood 0.03 A Meds: Medications Acetaminophen (Tylenol) 650 mg PO Q6HP PRN PRN Reason: PAIN/FEVER > 101 Last Admin: 08/05/18 20:52 Dose: 650 mg Documented by: Hydrocodone Bitart/Acetaminophen ([place] 5/325mg) 1 tab PO Q4HP PRN PRN Reason: PAIN LEVEL 3-6 Albuterol/Ipratropium (Duoneb) 3 ml NEB Q6HRT [facility] Last Admin: 08/07/18 12:27 Dose: 3 ml Documented by: Apixaban (Eliquis) 5 mg PO BID [facility] Last Admin: 08/07/18 08:08 Dose: 5 mg Documented by: Budesonide (Pulmicort) 0.5 mg NEB Q12 [facility] Last Admin: 08/07/18 12:28 Dose: 0.5 mg Documented by: Dicyclomine HCl (Dicyclomine) 20 mg PO [facility] Last Admin: 08/06/18 21:11 Dose: 20 mg Documented by: Divalproex Sodium (Depakote Sprinkles) 250 mg PO [facility] Last Admin: 08/06/18 21:11 Dose: 250 mg Documented by: Sodium Chloride (Sodium Chloride 0.9%) 1,000 mls @ 100 mls/hr IV .Q10H [facility] Last Admin: 08/07/18 05:32 Dose: 100 mls/hr Documented by: Levofloxacin (Levaquin) 500 mg in 100 mls @ 100 mls/hr IV Q24H [facility] Naloxone HCl (Narcan) 0.1 mg IV Q2MIN PRN PRN Reason: Opiate Reversal Ondansetron HCl (Zofran) 4 mg IV Q4HP PRN PRN Reason: Nausea And Vomiting Pramipexole Dihydrochloride (Mirapex) 0.25 mg PO [facility] Last Admin: 08/06/18 21:12 Dose: Not Given Documented by: Prednisone (Prednisone) 40 mg PO [facility] Last Admin: 08/07/18 08:08 Dose: 40 mg Documented by: Ropinirole HCl (Requip) 0.25 mg PO [facility] Last Admin: 08/06/18 21:11 Dose: 0.25 mg Documented by: Simvastatin (Zocor) 20 mg PO [facility] Last Admin: 08/06/18 21:11 Dose: 20 mg Documented by: Medical - PN: A/P - Time Spent With Patient Total time spent is greater than 50% in coordination of care (as documented) at patient's floor/unit and/or counseling patient: - Narrative A/P Narrative: A: * COPD exacerbation * Hypoxic respiratory failure: * gradual clinical improvement and now on 0-1 L oxygen. * Leukocytosis likely secondary to steroids. Downtrending * History of DVT: continue anti-coagulation on Apixiban * Hyperlipidemia continue statin * Restless leg syndrome continue pramipexole * Left ankle xerosis/excoriated skin-local emollients/wound care nurse on board Plan * PT/ OT * Bronchodilators and steroid * Continue Levaquin for additional 2 days * Anticoagulation * Attempt to wean. Scheduled outpatient pulmonary function tests on discharge * ppx: home eliquis Medical - PN: Qual - VTE Deep Vein Thrombosis/Pulmonary Embolism Present on Admission: Yes
--- NOTE | 2018-08-07 13:28 | Discharge Summary ---
Medical - DS: Prov Patient information: Note initiated : 08/07/18 at 1:24 pm Service Date, if different from initiated Date: [] Patient: Tobias Richards 67 y/o M admitted on 08/05/18 for Right side MidAbdominal pain. Chief Complaint: [] Date of admission: 08/05/18 01:38 Discharge date: 08/08/18 Primary care physician: Steven Pacheco Consults: 08/05/18 Consult to Physician [CONS] Stat Comment: Consulting Provider: Chris Knox Reason For Exam: Physician to Consult Medical - DS: Meds - Discharge Medications Prescriptions: Levofloxacin [Levaquin] 500 mg PO DAILY #3 tab predniSONE [Prednisone] 40 mg PO [facility] #1 tab Active and Home Medications: Home Medications pravastatin 40 mg tablet 40 mg PO [facility] #90 tab 01/19/18 [Rx Confirmed 08/05/18 Last Taken 08/04/18 21:00] pramipexole 0.25 mg tablet 0.25 mg PO [facility] #90 tab 02/25/18 [Rx Confirmed 08/05/18 Last Taken 08/04/18 21:00] Apixaban [Eliquis] 5 mg PO BID 08/05/18 [History Confirmed 08/05/18 Last Taken 08/04/18 21:00] Dicyclomine 20 mg PO HS 08/05/18 [History Confirmed 08/05/18 Last Taken 08/04/18 21:00] Divalproex Sodium [Depakote] 250 mg PO HS 08/05/18 [History Confirmed 08/05/18 Last Taken 08/04/18 21:00] Ketoconazole 2% Top Crm [Nizoral 2% Top Crm] 1 applic TOPICAL QDAY PRN 08/05/18 [History Confirmed 08/05/18 Last Taken Unknown] Medical - DS: Hosp Hospital course: Mr. Richards is a 67 year old M Mr. Richards is a 67 year old M with H/o developmental delay, DVT on anticoagulation, COPD who presents to the ER with 2 days' onset of cough along with right lower chest/flank pain. He denied associated fever or palpitations or chills. Endorses to gradual progressive shortness of breath along with you per sputum. Denies sick contacts or changes in medications. Initial workup in the ER was consistent with sepsis with an clear etiology with a white count 19.5. Renal ultrasound/chest. Remarkable for acute process. Hospitalist service was consulted in light of sepsis of unclear origin. At the time of evaluation patient is alert and oriented. He endorses to history as above. Denies drenching sweats, shaking chills, dysuria, diarrhea, rash or joint pain he further denies headache, photophobia, projectile vomiting. He denies sick contacts. Denies travel outside the [place] or unprotected sexual intercourse. He lives with his girlfriend. 08/06-patient did remarkably well in the last 24 hours, bronchodilators, steroids. Much improved breathing. willing to participate in physical therapy. Ongoing bronchodilator treatments. However elevated white count of 20,000 likely secondary to steroid. Afebrile. No overnight concerns per nursing staff. No telemetry events. Denies flank pain, shaking chills. Chest pain resolved. 08/07-patient doing remarkably better. No shortness of breath, fever. White count down from 23.1-17.9. On 2 L nasal cannula. Continue PT OT. Anticipate discharge in 24 hours if continues to improve. Continue levofloxacin for additional 3 days 08/08 Morning will monitor pulse ox And get RT to assess for home oxygen. Has cough and slept well. Breathing improved. No shortness of breath. Qualified for home oxygen with exertion, did not need at rest. Stable for discharge Discharge diagnosis: COPD exacerbation acute hypoxic respiratory failure - Time Spent with Patient Total time spent providing and/or coordinating discharge services: Greater than 30 minutes Medical - DS: Exam - Constitutional Vitals: Vital Signs Temp Pulse Pulse Resp BP BP Pulse Ox 08/07/18 12:28 76 18 93 08/07/18 11:02 98.7 F 16 118/72 93 08/07/18 10:27 93 08/07/18 10:25 101 H 85 L 08/07/18 07:35 98.8 F 14 124/75 94 08/07/18 04:00 97.9 F 78 16 116/69 91 08/07/18 01:03 67 20 08/06/18 23:29 98.4 F 78 20 112/66 93 08/06/18 19:20 98.1 F 88 18 110/61 93 08/06/18 19:04 84 18 92 08/06/18 19:00 84 18 08/06/18 16:00 98.3 F 78 18 116/66 92 08/06/18 13:37 90 14 Intake and Output 08/06/18 08/07/18 08/07/18 21:59 05:59 13:59 Intake Total 1800 1600 100 Output Total 900 1700 1100 Balance 900 -100 -1000 Intake: IV 1000 1000 100 Sodium Chloride 0.9% 1,000 ml @ 1000 1000 100 mls/hr IV .Q10H [facility] Rx#: [id number] Oral 800 600 Output: Void Amount 900 1700 1100 Other: Meal Dinner Percent of Meal Consumed 100% Feeding Ability Assist with Tray Set Up Urine Color Pale Pale Urine Odor Normal Normal # Voids 1 Weight 63.73 kg Medical - DS: Data Labs on day of discharge: Labs from last 24 hours 08/07/18 08/07/18 04:12 04:10 WBC 17.9 H RBC 4.07 L Hgb 12.4 L Hct 37.7 L MCV 92.6 MCH 30.6 MCHC 33.0 RDW 14.8 H Plt Count 195 MPV 8.4 Total Counted 100 Seg Neutrophils % 64 Band Neutrophils % 11 H Lymphocytes % 17 Monocytes % (Manual) 7 Reactive Lymphocytes 1 Platelet Estimate Normal RBC Morphology Normal Sodium 142 Potassium 3.9 Chloride 109 H Carbon Dioxide 21 L Anion Gap 12.0 BUN 13 Creatinine 0.8 GFR Calculation 93 Glucose 82 Uric Acid 4.2 Calcium 8.5 L Phosphorus 2.9 Magnesium 1.7 Total Bilirubin 0.2 Direct Bilirubin < 0.2 GGT 26 AST 19 ALT 15 Alkaline Phosphatase 83 Lactate Dehydrogenase 184 Total Protein 6.1 Albumin 3.2 Globulin 2.9 Albumin/Globulin Ratio 1.1 Triglycerides 52 Preliminary micro results at discharge 08/05/18 00:35 Blood Culture - Preliminary Blood 08/05/18 00:25 Blood Culture - Preliminary Blood Medical - DS: A/P - Patient/Caregiver Discharge Instructions Activity: increase activity as tolerated Diet: Regular Diet Additional Instructions: Home oxygen per respiratory therapy Recommend outpatient pulmonary function tests Prescriptions: Levofloxacin [Levaquin] 500 mg PO DAILY #3 tab predniSONE [Prednisone] 40 mg PO [facility] #1 tab - Follow up Plan Follow up with: Steven Pacheco DO [Primary Care Provider] - Disposition: Xfer Other Prognosis: Fair Rehab Potential: Fair Overall status at discharge: patient is progressing back to baseline Medical - DS: Qual - VTE Deep Vein Thrombosis/Pulmonary Embolism Present on Admission: Yes
[2018-08-07] MEDS ORDERED: IPRATROPIUM/ALBUTEROL 3 ML AMPUL.NEB NEB PRN (17:18)
[2018-08-07] MEDS: DIVALPROEX 125 MG CAP.SPRINK PO SCH (20:20)
[2018-08-07] MEDS: SIMVASTATIN 20 MG TABLET PO SCH (20:20)
[2018-08-07] MEDS: DICYCLOMINE 20 MG TABLET PO SCH (20:20)
[2018-08-07] MEDS: rOPINIRole 0.25 MG TABLET PO SCH (20:20)
[2018-08-07] MEDS: PRAMIPEXOLE 0.25 MG TABLET PO SCH (20:25)
[2018-08-08] MEDS: 0.9 % SODIUM CHLORIDE 1,000 ML IV SCH (03:38)
[2018-08-08 05:34] LABS: Hematocrit 38.3 % (41.0-55.0); Hemoglobin 12.7 g/dL (13.5-16.5); Mean Cell Volume 92.2 fL (80.0-100.0); Mean Corpuscular HGB Conc 33.1 g/dL (31.0-36.0); Mean Platelet Volume 8.4 fL (7.4-10.4); Platelet Count 220 K/mcL (140-440); RBC 4.15 M/mcL (4.50-5.90); Red Cell Distribution Width 14.6 % (11.5-14.5); WBC 15.3 K/mcL (4.5-11.0)
[2018-08-08 05:39] LABS: ALT/SGPT 24 U/l (0-40); AST/SGOT 21 U/l (0-37); Albumin 2.9 gm/dL (3.2-5.2); Alkaline Phosphatase 88 U/L (39-117); Bilirubin,Direct < 0.2 mg/dL (0.0-0.3); Bilirubin,Total 0.3 mg/dL (0.0-1.0); Blood Urea Nitrogen 17 mg/dl (8-23); Calcium 8.5 mg/dl (8.6-10.4); Carbon Dioxide 24 mmol/L (22-30); Chloride 106 mmol/L (96-108); Glomerular Filtration Rate 89; Glucose 82 mg/dL (70-105); Lactate Dehydrogenase 194 U/L (94-250); Magnesium 1.8 mg/dL (1.6-2.5); Phosphorous 3.2 mg/dL (2.7-4.5); Potassium 4.3 mmol/L (3.3-5.1); Sodium 138 mmol/L (133-145); Triglycerides 41 mg/dl (<150); Uric Acid 4.2 mg/dL (2.5-8.0)
[2018-08-08 06:41] LABS: Eosinophils % (Manual) 1 % (0-7); Lymphocytes % 21 % (15-49); Monocytes % (Manual) 6 % (1-12); Platelet Estimate NORMAL (NORMAL); RBC Morphology NORMAL (NORMAL); Segmented Neutrophils % 72 % (38-78)
[2018-08-08] MEDS: predniSONE 20 MG TABLET PO SCH (08:59)
[2018-08-08] MEDS: LEVOFLOXACIN 500 MG/100 ML BAG IV SCH (08:59)
[2018-08-08] MEDS: APIXABAN 5 MG TABLET PO SCH (08:59)
== END 2018-08-08 15:30 | disposition other institution (70) | DRG 190 ==
LOC: ED 19:58 → MEDSUR 08-05 00:38
PROVIDERS: ADMIT Internal Medicine; ATTEND Internal Medicine

== ENCOUNTER 2022-03-11 16:10 | Inpatient (IN) ==
[2022-03-11] MEDS ORDERED: IOPAMIDOL 100 ML BOTTLE IV ONE (16:11)
--- NOTE | 2022-03-11 16:34 | Emergency Department Note ---
HPI General Chief complaint: Rib Pain Stated complaint: R side pain Time Seen by Provider: 03/11/22 16:33 Source: patient Mode of arrival: ambulatory Limitations: no limitations History of Present Illness HPI Narrative: Narrative: Patient is a 71-year-old male with a complex history, importantly history of DVT who presents to the emergency department due to right-sided chest pain. Patient's states that he has had approximately 3 days of pain, and has become unbearable to the point that he has a difficult time sleeping. The patient states that it worsens with deep breathing, and his states that it also worsens when he bends over or tries to get up from lying down. For this reason he has been sleeping on a recliner. He also endorses worsening with palpation. He states that it is a sharp type chest pain. He endorses some lightheadedness and shortness of breath as well. He denies any other symptoms at this time. Related Data Home Medications Medication Instructions Recorded Confirmed warfarin 2 mg tablet 2 mg PO DAILY 03/11/22 03/11/22 Previous Rx's Medication Instructions Recorded dicyclomine 20 mg tablet 20 mg PO QPM #90 tabs 09/04/20 divalproex 250 mg tablet,delayed 250 mg PO QPM #90 tabs 09/17/21 release folic acid 1 mg tablet 1 mg PO QDAY #90 tabs 09/17/21 hydrochlorothiazide 12.5 mg tablet 12.5 mg PO QAM #90 tabs 09/17/21 pramipexole 0.25 mg tablet 0.25 mg PO QPM #90 tabs 09/17/21 pravastatin 40 mg tablet 40 mg PO QHS #90 tabs 09/17/21 fluoxetine 40 mg capsule 40 mg PO QDAY #90 caps 12/24/21 cefdinir 300 mg capsule 300 mg PO BID #7 caps 03/13/22 Allergies Allergy/AdvReac Type Severity Reaction Status Date / Time No Known Drug Allergies Allergy Verified 03/11/22 16:16 Review of Systems ROS ROS Narrative: Narrative: Constitutional: Denies fever or weakness Eyes: Denies eye pain or vision change ENT ED: Denies throat pain or rhinorrhea Cardiovascular: Reports chest pain and other (Lightheadedness); Denies dyspnea on exertion, orthopnea or edema Respiratory: Reports shortness of breath; Denies cough Gastrointestinal: Denies abdominal pain, nausea, vomiting, diarrhea, constipation, hematochezia or melena Genitourinary: Denies dysuria, frequency or hematuria Musculoskeletal: Denies back pain or myalgia Integumentary: Denies rash or lesions Neurological: Denies headache, weakness, numbness, confusion, abnormal gait or dizziness Endocrine: Denies fatigue or polyuria Hematological/Lymphatic: Denies easy bleeding or easy bruising [facility] Narrative Patient History Narrative: Narrative: Medical/Surgical/Family History All Active Problems (Updated 03/14/22 @ 15:10 by Jaskaran Guy MD) Fall (Acute) Laceration (Acute) Pneumonia (Acute) Syncope (Acute) Peripheral vascular disease (Acute) 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 depressive disorder (Acute) 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) Tobacco abuse (Acute) Medicare annual wellness visit, subsequent (Acute) Streptococcus pneumoniae vaccination indicated (Acute) Edema of right foot (Acute) Superficial bruising of foot (Acute) Elevated INR (Acute) Encounter for examination to participate in special olympics (Chronic) Venous insufficiency (Chronic) Viral URI with cough (Chronic) Sebaceous cyst (Chronic) Restless leg syndrome (Chronic) Developmental mental disorder (Chronic) DVT (deep venous thrombosis) (Chronic) Borderline diabetes mellitus (Chronic) Hyperlipidemia (Chronic) Learning disability (Chronic) Pilonidal cyst (Chronic) Hernia, umbilical (Chronic) Chronic obstructive pulmonary disease (Chronic 06/06/14) Medical History Borderline diabetes mellitus a1c is 5.1 07/01/16, down from 5.8, low carb diet, good physical activity advised. Chronic obstructive pulmonary disease (06/06/14) Developmental mental disorder DVT (deep venous thrombosis) 05/02/2015-[facility] Hernia, umbilical 1993 High risk medication use ON divalproex for Mental retardation, was prescribed by Dr Moura for aggressive behavoir ? cmp wnl, monitor Hyperlipidemia LDL is 109, goal LDL < 130, on pravastatin 40 continue same. CMP ok, tolerating medication well. 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 Venous insufficiency Surgical History History of surgery (~02/20/21) Greater Saphenous vein ablation, Right side History of tonsillectomy S/P aneurysm repair (~01/22/19) Endograft Repair of Aortoiliac Aneurysm Family History Father , of [place] Cardiac disease, Onset Age: 60 Social History Smoking Status: Current every day smoker Alcohol Intake Frequency: former alcohol drinker Substance Use: does not use Exam Narrative Narrative: Narrative: General Limitations: no limitations General appearance: Present alert and in no apparent distress; Absent anxious, appears intoxicated or sleepy Head Head: Present atraumatic and normocephalic Eye Eye: Present EOMI; Absent scleral icterus or nystagmus ENT ENT: Present mucous membranes moist; Absent nasal congestion Neck Neck: Present full ROM; Absent tenderness Chest Chest: Present normal inspection and symmetric chest wall rise; Absent tenderness Respiratory Respiratory: Present normal lung sounds bilaterally; Absent respiratory distress or accessory muscle use Cardiovascular Cardiovascular: Present regular rate, normal rhythm and normal heart sounds Adbominal Abdominal: Present soft; Absent distention Extremities Extremities: Present normal inspection and full ROM; Absent tenderness, pedal edema or pretibial edema Back Back: Present normal inspection and full ROM Neurological Neurological: Present alert and oriented X3 Psychiatric Psychiatric: Present normal affect and normal mood Skin Skin: Present warm (WNL), dry and normal color Course Vital Signs Vital signs: Vital Signs Temperature 97.1 F 03/11/22 16:13 Pulse Rate 71 03/11/22 16:13 Respiratory Rate 20 03/11/22 16:13 Blood Pressure 108/69 03/11/22 16:13 Pulse Oximetry (%) 91 03/11/22 16:13 Oxygen Delivery Method 03/11/22 16:13 Temperature 97.3 F 03/14/22 12:00 Pulse Rate 69 03/14/22 12:00 Respiratory Rate 22 03/14/22 07:26 Blood Pressure 99/66 03/14/22 12:00 Pulse Oximetry (%) 91 03/14/22 12:00 Oxygen Delivery Method 03/14/22 07:26 Oxygen Flow Rate (L/min) 1.5 03/14/22 07:26 MDM MDM Narrative Medical decision making narrative: Narrative: Patient is a 71-year-old male with a complex history, importantly history of DVT who presents to the emergency department due to right-sided chest pain. Differential diagnoses include ACS, covid, influenza, pneumonia, pulmonary embolus, and musculoskeletal type pain. Patient's labs demonstrate a mild leukocytosis. D dimer is elevated. CT angio demonstrates evidence of pneumonia, but no pulmonary embolus. Patient has recei ramez antibiotics. I have spoken to Dr. Collins who has agreed to see and evaluate patient for admission. Lab Data Result diagrams: 03/14/22 05:25 03/14/22 05:24 Labs: Lab Results 03/11/22 03/11/22 03/11/22 Range/Units 17:06 17:10 17:10 WBC 12.0 H (4.5-11.0) K/mcL RBC 4.71 (4.63-6.08) M/mcL Hgb 14.9 (13.7-17.5) g/dL Hct 43.9 (40.1-51.0) % POC Hct 46.0 (41-55) MCV 93.2 (80.0-100.0) fL MCH 31.6 (26.0-34.0) pg MCHC 33.9 (31.0-36.0) g/dL RDW 14.6 H (11.5-14.5) % Plt Count 207 (140-440) K/mcL MPV 10.2 (8.8-12.5) fL Immature Gran % (Auto) 0.4 (0.0-0.5) % Neut % (Auto) 73.1 (38.0-78.0) % Lymph % (Auto) 13.5 L (15.5-49.0) % [place] % (Auto) 11.4 (1.0-12.0) % Eos % (Auto) 1.3 (0.0-7.0) % Baso % (Auto) 0.3 (0.0-2.0) % Lymph # (Auto) 1.63 (1.50-4.80) K/mcL [place] # (Auto) 1.37 H (0.10-0.90) K/mcL Eos # (Auto) 0.16 (0.00-0.70) K/mcL Baso # (Auto) 0.04 (0.00-0.30) K/mcL Immature Gran # 0.05 (0.00-0.05) K/mcl Absolute Neutrophils 8.79 H (1.80-8.00) K/mcL D-Dimer 0.95 H (0.27-0.50) ug/mL POC Sodium 138 (133-145) POC Potassium 4.3 (3.3-5.1) POC Chloride 105 (96-108) POC Total CO2 25.0 (22-30) POC BUN 23 H (6-20) POC Creatinine 1.0 (0.6-1.2) POC Glucose 85 (70-105) POC WB Ioniz Calcium 1.10 L (1.16-1.32) POC Troponin I (0.00-0.08) 03/11/22 Range/Units 17:28 WBC (4.5-11.0) K/mcL RBC (4.63-6.08) M/mcL Hgb (13.7-17.5) g/dL Hct (40.1-51.0) % POC Hct (41-55) MCV (80.0-100.0) fL MCH (26.0-34.0) pg MCHC (31.0-36.0) g/dL RDW (11.5-14.5) % Plt Count (140-440) K/mcL MPV (8.8-12.5) fL Immature Gran % (Auto) (0.0-0.5) % Neut % (Auto) (38.0-78.0) % Lymph % (Auto) (15.5-49.0) % [place] % (Auto) (1.0-12.0) % Eos % (Auto) (0.0-7.0) % Baso % (Auto) (0.0-2.0) % Lymph # (Auto) (1.50-4.80) K/mcL [place] # (Auto) (0.10-0.90) K/mcL Eos # (Auto) (0.00-0.70) K/mcL Baso # (Auto) (0.00-0.30) K/mcL Immature Gran # (0.00-0.05) K/mcl Absolute Neutrophils (1.80-8.00) K/mcL D-Dimer (0.27-0.50) ug/mL POC Sodium (133-145) POC Potassium (3.3-5.1) POC Chloride (96-108) POC Total CO2 (22-30) POC BUN (6-20) POC Creatinine (0.6-1.2) POC Glucose (70-105) POC WB Ioniz Calcium (1.16-1.32) POC Troponin I < 0.02 (0.00-0.08) ED POC Tests ED POC Tests: YVONNE - Influenza A Negative YVONNE - Influenza B Negative YVONNE - SARS Antigen Negative EKG Data EKG #1: EKG attestation: Yes I reviewed and interpreted this EKG. EKG results narrative: Normal sinus rhythm with a rate of 69, right axis deviation, NE of 157, QRS of 94, QTc 446, T wave flattening of leads II, III, aVL, aVF, and V5, and T wave inversions of leads V3 and V4, and absence of ST elevation or depression. Discharge Plan Patient/Caregiver Discharge Instructions Pt seen by DRUGLESS PHYSICIAN/PA only: No Clinical Impression: Pneumonia Activity: increase activity as tolerated Patient Disposition: Xfer As Inpt ([facility]) Condition: Fair Discharge Date/Time: 03/11/22 20:47
[2022-03-11] MEDS ORDERED: HYDROmorphone 0.5 MG/0.5 ML SYRINGE IV ONE (16:53)
[2022-03-11 17:12] LABS: POC Calcium, Ionized 1.1 (1.16-1.32); POC Potassium 4.3 (3.3-5.1)
[2022-03-11] MEDS ORDERED: 0.9 % SODIUM CHLORIDE 500 ML IV ONE (17:21)
[2022-03-11 17:34] LABS: Basophils # (Auto) 0.04 K/mcL (0.00-0.30); Basophils % (Auto) 0.3 % (0.0-2.0); Eosinophils # (Auto) 0.16 K/mcL (0.00-0.70); Eosinophils % (Auto) 1.3 % (0.0-7.0); Hematocrit 43.9 % (40.1-51.0); Hemoglobin 14.9 g/dL (13.7-17.5); Lymphocytes # (Auto) 1.63 K/mcL (1.50-4.80); Lymphocytes % (Auto) 13.5 % (15.5-49.0); Mean Cell Volume 93.2 fL (80.0-100.0); Mean Corpuscular HGB Conc 33.9 g/dL (31.0-36.0); Mean Platelet Volume 10.2 fL (8.8-12.5); Monocytes # (Auto) 1.37 K/mcL (0.10-0.90); Monocytes % (Auto) 11.4 % (1.0-12.0); Neutrophils % (Auto) 73.1 % (38.0-78.0); Platelet Count 207 K/mcL (140-440); RBC 4.71 M/mcL (4.63-6.08); Red Cell Distribution Width 14.6 % (11.5-14.5)
[2022-03-11] MEDS ORDERED: AZITHROMYCIN 500 MG in DEXTROSE 5% IN WATER 250 ML IV ONE (18:37)
[2022-03-11] MEDS ORDERED: cefTRIAXone 1 GM VIAL IV ONE (18:37)
--- NOTE | 2022-03-11 20:04 | Internal Med History&Physical ---
HPI History of Present Illness Patient information: Note initiated : 03/11/22 at 7:52 pm Service Date, if different from initiated Date: [] Patient: Tobias Richards 71 y/o M admitted on for R side pain. Chief Complaint: [] History of present illness: Mr. Richards is a 71 year old with a history of hypertension, hyperlipidemia, COPD, DVT on Coumadin, developmental delay, chronic right lower extremity wound secondary to venous insufficiency was brought to the emergency room by his power of neonatologist for right-sided chest pain. His chest pain been going on for several days, the patient had a fall at home prior to developing the chest pain. He says that he fell on his left outside while walking outside. The patient says his chest pain is pleuritic in nature and seems to be worsening. In the emergency department, patient had an oxygen requirement of 1 L/min. He has leukocytosis, a D-dimer was elevated therefore a CTA chest was ordered and reportedly shows a right upper lobe pneumonia, no PE reported. Hospital medicine was consulted for admission for the patient's oxygen requirement in the setting of pneumonia. The patient did not appear to be in any respiratory distress, he was on 1 L/min nasal cannula oxygen supplementation. He is accompanied by his power of neonatologist whom he lives with and who watches over him. She assisted with providing the history of the patient's recent symptoms. She says that he broke his teeth and cut his chin from his recent fall. The patient did come into the ED after the fall, the chin laceration was closed up at that time and appears stable at the time of admission. Review of systems Constitutional: no fever, fatigue, or weight loss Eyes: no vision changes or pain Cardiovascular: Positive for pleuritic right chest pain Respiratory: Positive for nonproductive cough and dyspnea Gastrointestinal: no abdominal pain, no nausea, vomiting, or diarrhea Genitourinary: no dysuria or difficulty voiding Musculoskeletal: no arthralgia or myalgia Integumentary: no skin lesion or wound Neurological: no focal weakness or numbness Psychiatric: no anxiety or depression Physical exam Head: Recent laceration on the chin, closed up and appears stable. Eyes: normal appearance, no scleral icterus. Neck: full ROM Respiratory: 1 L/min nasal cannula oxygen supplementation, no wheezing, no accessory muscle use. Cardiovascular: normal rate and rhythm, S1, S2. GI/Abdominal: soft, nontender, no guarding. Extremities: full range of motion, nontender. Neurological: CN II-XII intact, intact motor, intact sensation. Psychiatric: normal mood. Skin: warm, normal color PFSH PFSH All Active Problems (Updated 03/05/22 @ 16:32 by Cassidy Soria PA-C) Fall (Acute) Laceration (Acute) Syncope (Acute) Peripheral vascular disease (Acute) Major depressive disorder (Acute) [facility] current use of anticoagulant therapy (Acute) Tobacco abuse (Acute) Medicare annual wellness visit, subsequent (Acute) Streptococcus pneumoniae vaccination indicated (Acute) Edema of right foot (Acute) Superficial bruising of foot (Acute) Elevated INR (Acute) Encounter for examination to participate in special olympics (Chronic) Venous insufficiency (Chronic) Viral URI with cough (Chronic) Sebaceous cyst (Chronic) Restless leg syndrome (Chronic) Developmental mental disorder (Chronic) DVT (deep venous thrombosis) (Chronic) Borderline diabetes mellitus (Chronic) Hyperlipidemia (Chronic) Learning disability (Chronic) Pilonidal cyst (Chronic) Hernia, umbilical (Chronic) Chronic obstructive pulmonary disease (Chronic 06/06/14) Medical History Borderline diabetes mellitus a1c is 5.1 07/01/16, down from 5.8, low carb diet, good physical activity advised. Chronic obstructive pulmonary disease (06/06/14) Developmental mental disorder DVT (deep venous thrombosis) 05/02/2015-[facility] Hernia, umbilical 1993 High risk medication use ON divalproex for Mental retardation, was prescribed by Dr Moura for aggressive behavoir ? cmp wnl, monitor Hyperlipidemia LDL is 109, goal LDL < 130, on pravastatin 40 continue same. CMP ok, tolerating medication well. 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 [employer] smoking status: Current every day smoker tobacco type: cigarettes per day: 10 pack-years: 45 alcohol intake frequency: former alcohol drinker substance use type: does not use MEDS/ALLERGIES Home Medications and Allergies Home Medications Medication Instructions Recorded Confirmed Type dicyclomine 20 mg tablet 20 mg PO QPM #90 tabs 09/04/20 02/11/22 Rx divalproex 250 mg tablet,delayed 250 mg PO QPM #90 tabs 09/17/21 02/11/22 Rx release folic acid 1 mg tablet 1 mg PO QDAY #90 tabs 09/17/21 02/11/22 Rx hydrochlorothiazide 12.5 mg tablet 12.5 mg PO QAM #90 tabs 09/17/21 02/11/22 Rx pramipexole 0.25 mg tablet 0.25 mg PO QPM #90 tabs 09/17/21 02/11/22 Rx pravastatin 40 mg tablet 40 mg PO QHS #90 tabs 09/17/21 02/11/22 Rx warfarin 2 mg tablet 2 mg PO QDAY #90 tabs 09/17/21 02/25/22 Rx fluoxetine 40 mg capsule 40 mg PO QDAY #90 caps 12/24/21 02/11/22 Rx Allergies Allergy/AdvReac Type Severity Reaction Status Date / Time No Known Drug Allergies Allergy Verified 03/11/22 16:16 EXAM Constitutional Vitals: Temp Pulse Resp BP Pulse Ox O2 Del Method O2 Flow Rate 97.1 F 62 26 H 144/95 92 1 03/11/22 16:13 03/11/22 19:29 03/11/22 19:29 03/11/22 19:21 03/11/22 19:29 03/11/22 17:20 03/11/22 17:20 DATA Data Completed and Pending Labs: Labs from last 24 hours 03/11/22 03/11/22 03/11/22 17:28 17:10 17:10 WBC 12.0 H RBC 4.71 Hgb 14.9 Hct 43.9 POC Hct MCV 93.2 MCH 31.6 MCHC 33.9 RDW 14.6 H Plt Count 207 MPV 10.2 Immature Gran % (Auto) 0.4 Neut % (Auto) 73.1 Lymph % (Auto) 13.5 L [place] % (Auto) 11.4 Eos % (Auto) 1.3 Baso % (Auto) 0.3 Lymph # (Auto) 1.63 [place] # (Auto) 1.37 H Eos # (Auto) 0.16 Baso # (Auto) 0.04 Immature Gran # 0.05 Absolute Neutrophils 8.79 H D-Dimer 0.95 H POC Sodium POC Potassium POC Chloride POC Total CO2 POC BUN POC Creatinine POC Glucose POC WB Ioniz Calcium POC Troponin I < 0.02 03/11/22 17:06 WBC RBC Hgb Hct POC Hct 46.0 MCV MCH MCHC RDW Plt Count MPV Immature Gran % (Auto) Neut % (Auto) Lymph % (Auto) [place] % (Auto) Eos % (Auto) Baso % (Auto) Lymph # (Auto) [place] # (Auto) Eos # (Auto) Baso # (Auto) Immature Gran # Absolute Neutrophils D-Dimer POC Sodium 138 POC Potassium 4.3 POC Chloride 105 POC Total CO2 25.0 POC BUN 23 H POC Creatinine 1.0 POC Glucose 85 POC WB Ioniz Calcium 1.10 L POC Troponin I A/P Narrative A/P Narrative: Assessment: 71-year-old male with a history of hypertension, hyperlipidemia, COPD, DVT on Coumadin, developmental delay, chronic right lower extremity wound admitted for hypoxia secondary to community-acquired pneumonia. #Community-acquired pneumonia #Hypoxia 1 L/min #Pleuritic right chest pain secondary to pneumonia #Hypertension #Hyperlipidemia #COPD not in exacerbation #History of DVT on Coumadin #Right lower extremity chronic wound #Developmental delay Plan -Ceftriaxone and azithromycin IV. -Oxygen supplementation, wean as able. -Analgesics for pleuritic chest pain. -Incentive spirometry. -Sputum gram stain and culture if able to collect sample. -SARS-CoV-2, influenza A, influenza B, RSV PCR. -Follow WBC. -IV fluid. -Albuterol nebs as needed. -Coumadin per pharmacy. -Wound care consult. -Home medication reconciliation, continue important meds. -Regular diet. -Follow-up pending CTA chest report. -DVT prophylaxis: On Coumadin. -Disposition: Home when stable. Time Spent With Patient Time: Total time spent is greater than 50% in coordination of care (as documented) at patient's floor/unit and/or counseling patient:
[2022-03-11] MEDS ORDERED: ONDANSETRON 4 MG/2 ML VIAL IV PRN (20:59)
[2022-03-11] MEDS ORDERED: ALBUTEROL SULFATE 2.5 MG/3 ML NEBULIZER NEB PRN (20:59)
[2022-03-11] MEDS: 0.9 % SODIUM CHLORIDE 1,000 ML IV SCH (21:03)
[2022-03-11] MEDS: DOCUSATE SODIUM 100 MG CAPSULE PO SCH (22:05)
[2022-03-11] MEDS: SENNOSIDES 1 TABLET PO SCH (22:05)
[2022-03-11] MEDS: 0.9 % SODIUM CHLORIDE 10 ML SYRINGE IV SCH (22:06)
[2022-03-11] MEDS ORDERED: DIVALPROEX SODIUM ER 250 MG TABLET PO ONE (22:39)
[2022-03-11] MEDS: DICYCLOMINE 20 MG TABLET PO SCH (22:48)
[2022-03-11] MEDS: DIVALPROEX SODIUM 250 MG TABLET PO SCH (22:48)
[2022-03-11] MEDS: PRAMIPEXOLE 0.25 MG TABLET PO SCH (22:48)
[2022-03-12] MEDS: KETOROLAC 30 MG/ML VIAL IV SCH ×4 (00:10→18:06)
[2022-03-12] MEDS: 0.9 % SODIUM CHLORIDE 10 ML SYRINGE IV SCH ×3 (04:12→20:39)
--- NOTE | 2022-03-12 05:31 | Cat Scan Report ---
CLINICAL INFORMATION: Right-sided chest pain. Positive d-dimer COMPARISON: 07/27/2018 TECHNIQUE: 80ml of Isovue-370 were injected intravenously. Using SmartPrep to maximize pulmonary artery opacification, .625mm helical slices were obtained from the lung apices through the lung bases. Following reconstruction, 2.5 mm sagittal, coronal, and axial reformations were processed. The exam was reviewed at mediastinal, lung, and bone windows. The exam was performed using radiation dose optimization techniques including, but not limited to, automated exposure control, adjustment of the mA and/or kV according to patient size and use of iterative reconstruction technique. FINDINGS: Pulmonary parenchymal windows show chronic bronchitis featuring elevated lung volumes and wall thickening/dilatation of the bronchi. Mosaic perfusion pattern noted. A moderate infiltrate has developed in the posterior segment of the right upper lobe with underlying honeycomb fibrosis. This is new from the previous exam. Small patchy groundglass infiltrates, scattered within both upper and lower lobes, are new from the previous examination.. Pleural spaces are unremarkable-no effusions. Mediastinal windows show the heart is moderately enlarged with asymmetric enlargement of the right ventricle and atrium. This has progressed since the previous exam. Only minimal calcific plaque present in the coronary arteries.. The central pulmonary arteries are moderately enlarged with the main pulmonary diameter 4.2 cm. Findings compatible with pulmonary hypertension likely related to chronic lung disease. No pulmonary emboli identified. Contrast bolus is suboptimal. Noncontrasted thoracic aorta is also normal diameter . There is no adenopathy in the mediastinal, hilar or axillary regions. Esophagus is grossly normal. The thyroid is unremarkable. Bones and soft tissues the chest wall are normal. Images through the superior abdomen show mild mesenteric edema etiology unknown IMPRESSION: 1. No evidence of pulmonary embolus. 2. Moderate enlargement of the central pulmonary arteries compatible with moderate pulmonary hypertension. There is asymmetric enlargement of the right ventricle and atrium also supportive of pulmonary hypertension. Slight progression from previous exam. This is likely related to underlying chronic bronchitis. 3. Moderate groundglass infiltrate superimposed upon honeycomb fibrosis in the posterior segment of the right upper lobe. Scattered small groundglass infiltrates seen throughout both upper and lower right middle lobe which are new. This is most likely due to infection or aspiration. Interpreted and Authenticated by: Steven Costa 03/12/22
[2022-03-12] MEDS: 0.9 % SODIUM CHLORIDE 1,000 ML IV SCH (06:28)
[2022-03-12 06:41] LABS: Basophils # (Auto) 0.05 K/mcL (0.00-0.30); Basophils % (Auto) 0.4 % (0.0-2.0); Eosinophils # (Auto) 0.25 K/mcL (0.00-0.70); Eosinophils % (Auto) 2.2 % (0.0-7.0); Hematocrit 40.9 % (40.1-51.0); Hemoglobin 13.8 g/dL (13.7-17.5); Lymphocytes # (Auto) 2.07 K/mcL (1.50-4.80); Lymphocytes % (Auto) 18.3 % (15.5-49.0); Mean Cell Volume 94.5 fL (80.0-100.0); Mean Corpuscular HGB Conc 33.7 g/dL (31.0-36.0); Mean Platelet Volume 9.9 fL (8.8-12.5); Monocytes # (Auto) 1.36 K/mcL (0.10-0.90); Neutrophils % (Auto) 66.7 % (38.0-78.0); Platelet Count 181 K/mcL (140-440); RBC 4.33 M/mcL (4.63-6.08); Red Cell Distribution Width 14.6 % (11.5-14.5); WBC 11.3 K/mcL (4.5-11.0)
[2022-03-12 07:01] LABS: ALT/SGPT 17 U/L (<40); AST/SGOT 22 U/L (<40); Albumin 2.8 gm/dL (3.2-5.2); Albumin/Globulin Ratio 1.2 (1.0-2.3); Alkaline Phosphatase 77 U/L (39-117); Bilirubin,Direct < 0.2 mg/dL (0-0.3); Bilirubin,Total 0.6 mg/dL (0.1-1.0); Blood Urea Nitrogen 22 mg/dL (8-23); Carbon Dioxide 24 mmol/L (22-30); Chloride 105 mmol/L (96-108); Globulin 2.3 gm/dL (2.2-3.7); Glomerular Filtration Rate 67; Glucose 77 mg/dL (70-105); Lactate Dehydrogenase 241 U/L (135-225); Phosphorous 3.4 mg/dL (2.5-4.5); Triglycerides 55 mg/dL (<150); Uric Acid 5.7 mg/dL (2.5-8.0)
[2022-03-12 07:09] LABS: INR 1.6 (0.9-1.1); Prothrombin Time 19.7 sec (11.9-14.5)
[2022-03-12] MEDS: FOLIC ACID 1 MG TABLET PO SCH (08:40)
[2022-03-12] MEDS: HYDROCHLOROTHIAZIDE 12.5 MG CAPSULE PO SCH ×2 (08:40→12:38)
[2022-03-12] MEDS: cefTRIAXone 1 GM VIAL IV SCH (08:40)
[2022-03-12] MEDS: FLUoxetine HCL 20 MG CAPSULE PO SCH (08:40)
[2022-03-12] MEDS: DOCUSATE SODIUM 100 MG CAPSULE PO SCH ×2 (08:40→20:37)
[2022-03-12] MEDS: AZITHROMYCIN 500 MG in DEXTROSE 5% IN WATER 250 ML IV SCH (08:52)
--- NOTE | 2022-03-12 09:26 | Internal Med Progress Note ---
SUBJECTIVE Subjective Patient information: Note initiated : 03/12/22 at 9:25 am Service Date, if different from initiated Date: [] Patient: Tobias Richards 71 y/o M admitted on 03/11/22 for R side pain. Chief Complaint: [] Interval history: Mr. Richards is a 71 year old with a history of hypertension, hyperlipidemia, COPD, DVT on Coumadin, developmental delay, chronic right lower extremity wound secondary to venous insufficiency was brought to the emergency room by his power of senior attorney for right-sided chest pain. His chest pain been going on for several days, the patient had a fall at home prior to developing the chest pain. He says that he fell on his left outside while walking outside. The patient says his chest pain is pleuritic in nature and seems to be worsening. In the emergency department, patient had an oxygen requirement of 1 L/min. He has leukocytosis, a D-dimer was elevated therefore a CTA chest was ordered and reportedly shows a right upper lobe pneumonia, no PE reported. Hospital medicine was consulted for admission for the patient's oxygen requirement in the setting of pneumonia. The patient did not appear to be in any respiratory distress, he was on 1 L/min nasal cannula oxygen supplementation. He is accompanied by his power of senior attorney whom he lives with and who watches over him. She assisted with providing the history of the patient's recent symptoms. She says that he broke his teeth and cut his chin from his recent fall. The patient did come into the ED after the fall, the chin laceration was closed up at that time and appears stable at the time of admission. 1/3 Wean off oxygen supplementation to room air, the patient is feeling better. Sputum culture pending. SARS-CoV-2, influenza A, influenza B, RSV PCR negative. Continue ceftriaxone and azithromycin. Physical exam Head: Recent laceration on the chin, closed up and appears stable. Eyes: normal appearance, no scleral icterus. Neck: full ROM Respiratory: room air, no wheezing, no accessory muscle use. Cardiovascular: normal rate and rhythm, S1, S2. GI/Abdominal: soft, nontender, no guarding. Extremities: full range of motion, nontender. Neurological: CN II-XII intact, intact motor, intact sensation. Psychiatric: normal mood. Skin: warm, normal color Constitutional Vitals: Vital Signs Temp Pulse Resp BP Pulse Ox O2 Del Method O2 Flow Rate 97.2 F 55 L 20 100/96 95 1.5 03/12/22 08:00 03/12/22 08:00 03/12/22 08:00 03/12/22 08:00 03/12/22 08:00 03/12/22 08:00 03/12/22 07:34 Period Temp Pulse Resp BP Sys/Morley Pulse Ox O2 Del Method O2 Flow Rate Last 24 Hr 97.1 F-98.7 F 55-79 17-27 90-149/50-98 88-95 Nasal Cannula- Room Air 1-1.5 Intake and Output 03/11/22 03/12/22 03/12/22 19:59 03:59 11:59 Intake Total 1700 942 Output Total 600 Balance 1100 942 Weight 60.328 kg 59.511 kg Intake & Output: Intake & Output 03/11/22 03/12/22 03/12/22 19:59 03:59 11:59 Intake Total 1700 942 Output Total 600 Balance 1100 942 Weight 60.328 kg 59.511 kg Intake: IV 750 942 Sodium Chloride 0.9% 1,000 ml @ 942 100 mls/hr IV .Q10H PERRI Rx#: [id number] Sodium Chloride 0.9% 500 ml @ 500 Wide Open IV BOLUS ONE Rx#: [id number] Zithromax 500 mg In Dextrose 5% 250 in Water 250 ml @ 250 mls/hr IV ONCE ONE Rx#:[id number] Oral 950 Output: Void Amount 600 Other: Meal Dinner Percent of Meal Consumed 100% Feeding Ability Assist with Tray Set Up Urine Appearance Clear Urine Color Dark Yellow Urine Odor Strong OBJ DATA Labs CBC & Chem 7: 03/12/22 05:49 03/12/22 05:49 Labs: Abnormal Lab Results 03/12/22 03/12/22 03/12/22 05:49 05:49 05:48 WBC 11.3 H RBC 4.33 L RDW 14.6 H Lymph % (Auto) [place] # (Auto) 1.36 H Absolute Neutrophils PT 19.7 H INR 1.6 H D-Dimer Anion Gap 6.0 L POC BUN Calcium 8.0 L POC WB Ioniz Calcium Lactate Dehydrogenase 241 H Total Protein 5.1 L Albumin 2.8 L 03/11/22 03/11/22 03/11/22 17:10 17:10 17:06 WBC 12.0 H RBC RDW 14.6 H Lymph % (Auto) 13.5 L [place] # (Auto) 1.37 H Absolute Neutrophils 8.79 H PT INR D-Dimer 0.95 H Anion Gap POC BUN 23 H Calcium POC WB Ioniz Calcium 1.10 L Lactate Dehydrogenase Total Protein Albumin Meds: Medications Acetaminophen (Acetaminophen 325 Mg Tablet) 650 mg PO Q6HP PRN; Protocol PRN Reason: Per Pain Protocol/Fever > 101 Hydrocodone Bitart/Acetaminophen (Hydrocodone/Apap 5/325mg Tablet) 1 tab PO Q4HP PRN; Protocol PRN Reason: Per Pain Protocol Albuterol Sulfate (Albuterol Sulfate 2.5 Mg/3 Ml Nebulizer) 2.5 mg NEB Q2HP PRN PRN Reason: Shortness Of Breath Ceftriaxone Sodium (Ceftriaxone 1 Gm Vial) 1 gm IV Q24H [facility]; Protocol Last Admin: 03/12/22 08:40 Dose: 1 gm Dicyclomine HCl (Dicyclomine 20 Mg Tablet) 20 mg PO QPM [facility] Last Admin: 03/11/22 22:48 Dose: 20 mg Divalproex Sodium (Divalproex Sodium 250 Mg Tablet) 250 mg PO QPM [facility] Last Admin: 03/11/22 22:48 Dose: 250 mg Docusate Sodium (Docusate Sodium 100 Mg Capsule) 100 mg PO BID [facility] Last Admin: 03/12/22 08:40 Dose: 100 mg Fluoxetine HCl (Fluoxetine Hcl 20 Mg Capsule) 40 mg PO DAILY [facility] Last Admin: 03/12/22 08:40 Dose: 40 mg Folic Acid (Folic Acid 1 Mg Tablet) 1 mg PO QDAY [facility] Last Admin: 03/12/22 08:40 Dose: 1 mg Hydrochlorothiazide (Hydrochlorothiazide 12.5 Mg Capsule) 12.5 mg PO DAILY [facility] Azithromycin 500 mg/ Dextrose 250 mls @ 250 mls/hr IV Q24H [facility]; Protocol Stop: 03/13/22 10:59 Last Admin: 03/12/22 08:52 Dose: 250 mls/hr Sodium Chloride (Sodium Chloride 0.9%) 1,000 mls @ 100 mls/hr IV .Q10H [facility] Last Admin: 03/12/22 06:28 Dose: 100 mls/hr Ketorolac Tromethamine (Ketorolac 30 Mg/Ml Vial) 15 mg IV Q6 [facility] Stop: 03/12/22 18:01 Last Admin: 03/12/22 05:57 Dose: 15 mg Ondansetron HCl (Ondansetron 4 Mg/2 Ml Vial) 4 mg IV Q6HP PRN PRN Reason: Nausea And Vomiting Pramipexole Dihydrochloride (Pramipexole 0.25 Mg Tablet) 0.25 mg PO QPM [facility] Last Admin: 03/11/22 22:48 Dose: 0.25 mg Senna (Sennosides 1 Tablet) 2 tab PO HS PERRI Last Admin: 03/11/22 22:05 Dose: 2 tab Simvastatin (Simvastatin 20 Mg Tablet) 20 mg PO HS PERRI Sodium Chloride (0.9 % Sodium Chloride 10 Ml Syringe) 10 ml IV Q8 [facility] Last Admin: 03/12/22 04:12 Dose: Not Given Warfarin Sodium (Warfarin Per Pharmacy) 1 order PO UD PERRI Warfarin Sodium (Warfarin 3 Mg Tablet) 3 mg PO ONCE@1400 ONE Stop: 03/12/22 14:01 A/P Narrative A/P Narrative: Assessment: 71-year-old male with a history of hypertension, hyperlipidemia, COPD, DVT on Coumadin, developmental delay, chronic right lower extremity wound admitted for hypoxia secondary to community-acquired pneumonia. #Community-acquired pneumonia #Resolved hypoxia secondary to pneumonia #Pleuritic right chest pain secondary to pneumonia #Hypertension #Hyperlipidemia #COPD not in exacerbation #Possible pulmonary hypertension #History of DVT on Coumadin #Right lower extremity chronic wound #Developmental delay Plan -Ceftriaxone and azithromycin IV. -Follow sputum gram stain and culture. -Analgesics for pleuritic chest pain. -Incentive spirometry. -Follow WBC. -Discontinue IV fluid. -Albuterol nebs as needed. -Coumadin per pharmacy. -Continue home Depakote, fluoxetine, hydrochlorothiazide, dicyclomine. -Regular diet. --Wound care consult. -DVT prophylaxis: On Coumadin. -Disposition: Home when medically stable, possibly tomorrow. Time Spent With Patient Time: Total time spent is greater than 50% in coordination of care (as documented) at patient's floor/unit and/or counseling patient: QUALITY Stroke Symptom Onset Unknown: No VTE Deep Vein Thrombosis/Pulmonary Embolism Present on Admission: No
[2022-03-12] MEDS ORDERED: WARFARIN 3 MG TABLET PO ONE (14:00)
--- NOTE | 2022-03-12 15:40 | Internal Med Progress Note ---
SUBJECTIVE Subjective Patient information: Note initiated : 03/12/22 at 3:38 pm Service Date, if different from initiated Date: [] Patient: Tobias Richards 71 y/o M admitted on 03/11/22 for R side pain. Chief Complaint: [] Interval history: Mr. Richards is a 71 year old with a history of hypertension, hyperlipidemia, COPD, DVT on Coumadin, developmental delay, chronic right lower extremity wound secondary to venous insufficiency was brought to the emergency room by his power of associate attorney for right-sided chest pain. His chest pain been going on for several days, the patient had a fall at home prior to developing the chest pain. He says that he fell on his left outside while walking outside. The patient says his chest pain is pleuritic in nature and seems to be worsening. In the emergency department, patient had an oxygen requirement of 1 L/min. He has leukocytosis, a D-dimer was elevated therefore a CTA chest was ordered and reportedly shows a right upper lobe pneumonia, no PE reported. Hospital medicine was consulted for admission for the patient's oxygen requirement in the setting of pneumonia. The patient did not appear to be in any respiratory distress, he was on 1 L/min nasal cannula oxygen supplementation. He is accompanied by his power of associate attorney whom he lives with and who watches over him. She assisted with providing the history of the patient's recent symptoms. She says that he broke his teeth and cut his chin from his recent fall. The patient did come into the ED after the fall, the chin laceration was closed up at that time and appears stable at the time of admission. / Wean off oxygen supplementation to room air, the patient is feeling better. Sputum culture pending. SARS-CoV-2, influenza A, influenza B, RSV PCR negative. Continue ceftriaxone and azithromycin. 03/13 Constitutional Vitals: Vital Signs Temp Pulse Resp BP Pulse Ox O2 Del Method O2 Flow Rate 97.5 F 64 20 97/69 91 1.5 03/12/22 11:45 03/12/22 11:45 03/12/22 08:00 03/12/22 11:45 03/12/22 11:45 03/12/22 11:45 03/12/22 07:34 Period Temp Pulse Resp BP Sys/Morley Pulse Ox O2 Del Method O2 Flow Rate Last 24 Hr 97.1 F-98.7 F 55-79 17-27 90-149/50-98 88-95 Nasal Cannula- Room Air 1-1.5 Intake and Output 03/12/22 03/12/22 03/12/22 03:59 11:59 19:59 Intake Total 1700 1182 240 Output Total 600 300 Balance 1100 1182 -60 Weight 59.511 kg 59.511 kg Patient Weight 03/13/22 03:59 Weight 59.511 kg Intake & Output: Intake & Output 03/12/22 03/12/22 03/12/22 03:59 11:59 19:59 Intake Total 1700 1182 240 Output Total 600 300 Balance 1100 1182 -60 Weight 59.511 kg 59.511 kg Intake: IV 750 942 Sodium Chloride 0.9% 1,000 ml @ 942 100 mls/hr IV .Q10H [facility] Rx#: [id number] Sodium Chloride 0.9% 500 ml @ 500 Wide Open IV BOLUS ONE Rx#: [id number] Zithromax 500 mg In Dextrose 5% 250 in Water 250 ml @ 250 mls/hr IV ONCE ONE Rx#:[id number] Oral 950 240 240 Output: Void Amount 600 300 Other: Meal Dinner Breakfast Lunch Percent of Meal Consumed 100% 100% 100% Feeding Ability Assist with Tray Set Up Urine Appearance Clear Urine Color Dark Yellow Dark Yellow Urine Odor Strong Exam: General: Alert, Awake, No acute Distress Eyes/N/T: EOMI, Head/Neck: neck supple, Recent laceration on the chin, closed up and appears stable. CV: RRR, No murmurs, Pulm: Clear b/l, no wheezing/rhonchi/rales Abd: soft, nontender, +BS x4 Ext: no clubbing/cyanosis/edema Neuro: Alert, no focal deficits, moves all extremities, Skin: warm/dry OBJ DATA Labs CBC & Chem 7: 03/12/22 05:49 03/12/22 05:49 Labs: Abnormal Lab Results 03/12/22 03/12/22 03/12/22 05:49 05:49 05:48 WBC 11.3 H RBC 4.33 L RDW 14.6 H Lymph % (Auto) [place] # (Auto) 1.36 H Absolute Neutrophils PT 19.7 H INR 1.6 H D-Dimer Anion Gap 6.0 L POC BUN Calcium 8.0 L POC WB Ioniz Calcium Lactate Dehydrogenase 241 H Total Protein 5.1 L Albumin 2.8 L 03/11/22 03/11/22 03/11/22 17:10 17:10 17:06 WBC 12.0 H RBC RDW 14.6 H Lymph % (Auto) 13.5 L [place] # (Auto) 1.37 H Absolute Neutrophils 8.79 H PT INR D-Dimer 0.95 H Anion Gap POC BUN 23 H Calcium POC WB Ioniz Calcium 1.10 L Lactate Dehydrogenase Total Protein Albumin Meds: Medications Acetaminophen (Acetaminophen 325 Mg Tablet) 650 mg PO Q6HP PRN; Protocol PRN Reason: Per Pain Protocol/Fever > 101 Hydrocodone Bitart/Acetaminophen (Hydrocodone/Apap 5/325mg Tablet) 1 tab PO Q4HP PRN; Protocol PRN Reason: Per Pain Protocol Albuterol Sulfate (Albuterol Sulfate 2.5 Mg/3 Ml Nebulizer) 2.5 mg NEB Q2HP PRN PRN Reason: Shortness Of Breath Ceftriaxone Sodium (Ceftriaxone 1 Gm Vial) 1 gm IV Q24H [facility]; Protocol Last Admin: 03/12/22 08:40 Dose: 1 gm Dicyclomine HCl (Dicyclomine 20 Mg Tablet) 20 mg PO QPM [facility] Last Admin: 03/11/22 22:48 Dose: 20 mg Divalproex Sodium (Divalproex Sodium 250 Mg Tablet) 250 mg PO QPM [facility] Last Admin: 03/11/22 22:48 Dose: 250 mg Docusate Sodium (Docusate Sodium 100 Mg Capsule) 100 mg PO BID [facility] Last Admin: 03/12/22 08:40 Dose: 100 mg Fluoxetine HCl (Fluoxetine Hcl 20 Mg Capsule) 40 mg PO DAILY [facility] Last Admin: 03/12/22 08:40 Dose: 40 mg Folic Acid (Folic Acid 1 Mg Tablet) 1 mg PO QDAY [facility] Last Admin: 03/12/22 08:40 Dose: 1 mg Hydrochlorothiazide (Hydrochlorothiazide 12.5 Mg Capsule) 12.5 mg PO DAILY [facility] Last Admin: 03/12/22 12:38 Dose: 12.5 mg Azithromycin 500 mg/ Dextrose 250 mls @ 250 mls/hr IV Q24H [facility]; Protocol Stop: 03/13/22 10:59 Last Admin: 03/12/22 08:52 Dose: 250 mls/hr Ketorolac Tromethamine (Ketorolac 30 Mg/Ml Vial) 15 mg IV Q6 [facility] Stop: 03/12/22 18:01 Last Admin: 03/12/22 12:11 Dose: 15 mg Ondansetron HCl (Ondansetron 4 Mg/2 Ml Vial) 4 mg IV Q6HP PRN PRN Reason: Nausea And Vomiting Pramipexole Dihydrochloride (Pramipexole 0.25 Mg Tablet) 0.25 mg PO QPM [facility] Last Admin: 03/11/22 22:48 Dose: 0.25 mg Senna (Sennosides 1 Tablet) 2 tab PO HS [facility]RI Last Admin: 03/11/22 22:05 Dose: 2 tab Simvastatin (Simvastatin 20 Mg Tablet) 20 mg PO HS PERRI Sodium Chloride (0.9 % Sodium Chloride 10 Ml Syringe) 10 ml IV Q8 [facility] Last Admin: 03/12/22 15:35 Dose: 10 ml Warfarin Sodium (Warfarin Per Pharmacy) 1 order PO UD PERRI A/P Narrative A/P Narrative: A: #Community-acquired pneumonia: #Acute hypoxic respiratory failure: 2/2 above -Now on room air #Pleuritic right chest pain: 2/2 pneumonia #Hypertension/Hyperlipidemia: #COPD not in exacerbation #Possible pulmonary hypertension #h/o DVT: on Coumadin #RLE chronic wound #Developmental delay: Plan: -Ceftriaxone and azithromycin IV. -Follow sputum gram stain and culture. -Analgesics for pleuritic chest pain. -Incentive spirometry. Albuterol nebs as needed. -Follow WBC. -Discontinue IV fluid. -Coumadin per pharmacy. -Continue home Depakote, fluoxetine, hydrochlorothiazide, dicyclomine. -Wound care consult. -ppx: Coumadin per pharmacy Time Spent With Patient Time: Total time spent is greater than 50% in coordination of care (as documented) at patient's floor/unit and/or counseling patient: QUALITY Stroke Symptom Onset Unknown: No VTE Deep Vein Thrombosis/Pulmonary Embolism Present on Admission: No
--- NOTE | 2022-03-12 15:41 | Discharge Summary ---
Discharge Provider Provider IMPORTANT FOLLOW-UP INFORMATION FOR PCP: Patient information: Note initiated : 03/12/22 at 3:40 pm Service Date, if different from initiated Date: [] Patient: Tobias Richards 71 y/o M admitted on 03/11/22 for R side pain. Chief Complaint: [] Date of admission: 03/11/22 20:47 Discharge date: 03/13/22 Primary care physician: Steven Pacehco DO Consults: 03/11/22 Consult to Physician [CONS] Stat Comment: Consulting Provider: Johnny Collins Reason For Exam: Physician to Consult COURSE Hospital Course Hospital course: HPI: Mr. Richards is a 71 year old with a history of hypertension, hyperlipidemia, COPD, DVT on Coumadin, developmental delay, chronic right lower extremity wound secondary to venous insufficiency was brought to the emergency room by his power of prosecuting attorney for right-sided chest pain. His chest pain been going on for several days, the patient had a fall at home prior to developing the chest pain. He says that he fell on his left outside while walking outside. The patient says his chest pain is pleuritic in nature and seems to be worsening. In the emergency department, patient had an oxygen requirement of 1 L/min. He has leukocytosis, a D-dimer was elevated therefore a CTA chest was ordered and reportedly shows a right upper lobe pneumonia, no PE reported. Hospital medicine was consulted for admission for the patient's oxygen requirement in the setting of pneumonia. The patient did not appear to be in any respiratory distress, he was on 1 L/min nasal cannula oxygen supplementation. He is accompanied by his power of prosecuting attorney whom he lives with and who watches over him. She assisted with providing the history of the patient's recent symptoms. She says that he broke his teeth and cut his chin from his recent fall. The patient did come into the ED after the fall, the chin laceration was closed up at that time and appears stable at the time of admission. 1/3 Wean off oxygen supplementation to room air, the patient is feeling better. Sputum culture pending. SARS-CoV-2, influenza A, influenza B, RSV PCR negative. Continue ceftriaxone and azithromycin. A: #Community-acquired pneumonia: #Acute hypoxic respiratory failure: 2/2 above -Now on room air #Pleuritic right chest pain: 2/2 pneumonia #Hypertension/Hyperlipidemia: #COPD not in exacerbation #Possible pulmonary hypertension #h/o DVT: on Coumadin #RLE chronic wound #Developmental delay: Plan: -abx Discharge diagnosis: Pneumonia acute hypoxic respite failure Secondary discharge diagnosis: Pleuritic chest pain hypertension hyperlipidemia COPD pulm hypertension DVT chronic wound trauma lower Time Spent with Patient Time attestation: Total time spent providing and/or coordinating discharge services: Time spent: Greater than 30 minutes EXAM Constitutional Vitals: Temp Pulse Resp BP Pulse Ox O2 Del Method O2 Flow Rate 97.5 F 64 20 97/69 91 1.5 03/12/22 11:45 03/12/22 11:45 03/12/22 08:00 03/12/22 11:45 03/12/22 11:45 03/12/22 11:45 03/12/22 07:34 Discharge Data Data Completed and Pending Labs on day of discharge: Labs from last 24 hours 03/12/22 03/12/22 03/12/22 05:49 05:49 05:48 WBC 11.3 H RBC 4.33 L Hgb 13.8 Hct 40.9 POC Hct MCV 94.5 MCH 31.9 MCHC 33.7 RDW 14.6 H Plt Count 181 MPV 9.9 Immature Gran % (Auto) 0.4 Neut % (Auto) 66.7 Lymph % (Auto) 18.3 [place] % (Auto) 12.0 Eos % (Auto) 2.2 Baso % (Auto) 0.4 Lymph # (Auto) 2.07 [place] # (Auto) 1.36 H Eos # (Auto) 0.25 Baso # (Auto) 0.05 Immature Gran # 0.04 Absolute Neutrophils 7.57 PT 19.7 H INR 1.6 H D-Dimer POC Sodium Sodium 135 POC Potassium Potassium 4.4 POC Chloride Chloride 105 Carbon Dioxide 24 POC Total CO2 Anion Gap 6.0 L POC BUN BUN 22 Creatinine 1.1 POC Creatinine GFR Calculation 67 Glucose 77 POC Glucose Uric Acid 5.7 Calcium 8.0 L POC WB Ioniz Calcium Phosphorus 3.4 Magnesium 1.7 Total Bilirubin 0.6 Direct Bilirubin < 0.2 GGT 40 AST 22 ALT 17 Alkaline Phosphatase 77 Lactate Dehydrogenase 241 H Total Protein 5.1 L Albumin 2.8 L Globulin 2.3 Albumin/Globulin Ratio 1.2 Triglycerides 55 POC Troponin I 03/11/22 03/11/22 03/11/22 17:28 17:10 17:10 WBC 12.0 H RBC 4.71 Hgb 14.9 Hct 43.9 POC Hct MCV 93.2 MCH 31.6 MCHC 33.9 RDW 14.6 H Plt Count 207 MPV 10.2 Immature Gran % (Auto) 0.4 Neut % (Auto) 73.1 Lymph % (Auto) 13.5 L [place] % (Auto) 11.4 Eos % (Auto) 1.3 Baso % (Auto) 0.3 Lymph # (Auto) 1.63 [place] # (Auto) 1.37 H Eos # (Auto) 0.16 Baso # (Auto) 0.04 Immature Gran # 0.05 Absolute Neutrophils 8.79 H PT INR D-Dimer 0.95 H POC Sodium Sodium POC Potassium Potassium POC Chloride Chloride Carbon Dioxide POC Total CO2 Anion Gap POC BUN BUN Creatinine POC Creatinine GFR Calculation Glucose POC Glucose Uric Acid Calcium POC WB Ioniz Calcium Phosphorus Magnesium Total Bilirubin Direct Bilirubin GGT AST ALT Alkaline Phosphatase Lactate Dehydrogenase Total Protein Albumin Globulin Albumin/Globulin Ratio Triglycerides POC Troponin I < 0.02 03/11/22 17:06 WBC RBC Hgb Hct POC Hct 46.0 MCV MCH MCHC RDW Plt Count MPV Immature Gran % (Auto) Neut % (Auto) Lymph % (Auto) [place] % (Auto) Eos % (Auto) Baso % (Auto) Lymph # (Auto) [place] # (Auto) Eos # (Auto) Baso # (Auto) Immature Gran # Absolute Neutrophils PT INR D-Dimer POC Sodium 138 Sodium POC Potassium 4.3 Potassium POC Chloride 105 Chloride Carbon Dioxide POC Total CO2 25.0 Anion Gap POC BUN 23 H BUN Creatinine POC Creatinine 1.0 GFR Calculation Glucose POC Glucose 85 Uric Acid Calcium POC WB Ioniz Calcium 1.10 L Phosphorus Magnesium Total Bilirubin Direct Bilirubin GGT AST ALT Alkaline Phosphatase Lactate Dehydrogenase Total Protein Albumin Globulin Albumin/Globulin Ratio Triglycerides POC Troponin I Preliminary micro results at discharge 03/11/22 03:35 Gram Stain - Preliminary Sputum source - Induced Discharge Plan Patient/Caregiver Discharge Instructions Activity: increase activity as tolerated Diet: Regular Diet Prescriptions: New cefdinir 300 mg capsule 300 mg PO BID Qty: 7 0RF Continued dicyclomine 20 mg tablet 20 mg PO QPM Qty: 90 1RF divalproex 250 mg tablet,delayed release (DR/EC) 250 mg PO QPM Qty: 90 1RF folic acid 1 mg tablet 1 mg PO QDAY Qty: 90 1RF hydrochlorothiazide 12.5 mg tablet 12.5 mg PO QAM Qty: 90 3RF pramipexole 0.25 mg tablet 0.25 mg PO QPM Qty: 90 1RF pravastatin 40 mg tablet 40 mg PO QHS Qty: 90 1RF fluoxetine 40 mg capsule 40 mg PO QDAY Qty: 90 1RF warfarin 2 mg tablet 2 mg PO DAILY Protocol: Dose Management Condition: Friday Dose/Route: 2 mg Instruction: 1 x 2 mg tablet Condition: Friday Dose/Route: Hold Instruction: No doses Condition: Friday Dose/Route: 2 mg Instruction: 1 x 2 mg tablet Condition: Friday Dose/Route: 2 mg Instruction: 1 x 2 mg tablet Condition: Dose/Route: 2 mg Instruction: 1 x 2 mg tablet Condition: Friday Dose/Route: 2 mg Instruction: 1 x 2 mg tablet Condition: Friday Dose/Route: 2 mg Instruction: 1 x 2 mg tablet Protocol Text: Adjustment Start Date: Friday02/25/22 INR Value: 2.6 INR Date: 02/25/22 Recheck Date: 03/11/22 Rx Instructions: 6 days a week, skip on mondays per ponaresh spencer. Follow Up Plan Follow up with: Steven Pacheco DO [Primary Care Provider] - Patient Disposition: Home Health Service Prognosis: Fair Overall status at discharge: patient is progressing back to baseline Discharge Orders: Discharge Order (Routine); Ordered 03/13/22 Ordered By: David Pressley [facility] VTE Deep Vein Thrombosis/Pulmonary Embolism Present on Admission: No
[2022-03-12] MEDS: SENNOSIDES 1 TABLET PO SCH (20:37)
[2022-03-12] MEDS: DIVALPROEX SODIUM 250 MG TABLET PO SCH (20:37)
[2022-03-12] MEDS: DICYCLOMINE 20 MG TABLET PO SCH (20:37)
[2022-03-12] MEDS: SIMVASTATIN 20 MG TABLET PO SCH (20:37)
[2022-03-12] MEDS: PRAMIPEXOLE 0.25 MG TABLET PO SCH (20:37)
[2022-03-12] MEDS: ACETAMINOPHEN 325 MG TABLET PO PRN (20:42)
[2022-03-13] MEDS: 0.9 % SODIUM CHLORIDE 10 ML SYRINGE IV SCH ×3 (05:42→21:27)
[2022-03-13 07:18] LABS: Basophils # (Auto) 0.05 K/mcL (0.00-0.30); Basophils % (Auto) 0.4 % (0.0-2.0); Eosinophils # (Auto) 0.59 K/mcL (0.00-0.70); Eosinophils % (Auto) 4.9 % (0.0-7.0); Hematocrit 43.2 % (40.1-51.0); Hemoglobin 14.3 g/dL (13.7-17.5); Lymphocytes # (Auto) 1.66 K/mcL (1.50-4.80); Lymphocytes % (Auto) 13.8 % (15.5-49.0); Mean Cell Volume 95.2 fL (80.0-100.0); Mean Corpuscular HGB Conc 33.1 g/dL (31.0-36.0); Mean Platelet Volume 10.4 fL (8.8-12.5); Monocytes # (Auto) 1.26 K/mcL (0.10-0.90); Monocytes % (Auto) 10.5 % (1.0-12.0); Neutrophils % (Auto) 69.9 % (38.0-78.0); Platelet Count 193 K/mcL (140-440); RBC 4.54 M/mcL (4.63-6.08); Red Cell Distribution Width 14.8 % (11.5-14.5); WBC 12.1 K/mcL (4.5-11.0)
[2022-03-13 07:34] LABS: INR 1.5 (0.9-1.1); Prothrombin Time 19.1 sec (11.9-14.5)
[2022-03-13 08:02] LABS: ALT/SGPT 18 U/L (<40); AST/SGOT 25 U/L (<40); Albumin 2.7 gm/dL (3.2-5.2); Albumin/Globulin Ratio 1.1 (1.0-2.3); Alkaline Phosphatase 88 U/L (39-117); Bilirubin,Direct < 0.2 mg/dL (0-0.3); Bilirubin,Total 0.4 mg/dL (0.1-1.0); Blood Urea Nitrogen 33 mg/dL (8-23); Calcium 8.1 mg/dL (8.6-10.4); Carbon Dioxide 25 mmol/L (22-30); Chloride 107 mmol/L (96-108); Globulin 2.5 gm/dL (2.2-3.7); Glomerular Filtration Rate 67; Glucose 81 mg/dL (70-105); Lactate Dehydrogenase 282 U/L (135-225); Triglycerides 57 mg/dL (<150); Uric Acid 5.8 mg/dL (2.5-8.0)
[2022-03-13] MEDS: cefTRIAXone 1 GM VIAL IV SCH (08:25)
[2022-03-13] MEDS: HYDROCHLOROTHIAZIDE 12.5 MG CAPSULE PO SCH (08:26)
[2022-03-13] MEDS: ACETAMINOPHEN 325 MG TABLET PO PRN ×2 (08:28→15:34)
[2022-03-13] MEDS: DOCUSATE SODIUM 100 MG CAPSULE PO SCH ×2 (08:30→21:25)
[2022-03-13] MEDS: FOLIC ACID 1 MG TABLET PO SCH (08:30)
[2022-03-13] MEDS: FLUoxetine HCL 20 MG CAPSULE PO SCH (08:30)
--- NOTE | 2022-03-13 08:41 | Internal Med Progress Note ---
SUBJECTIVE Subjective Patient information: Note initiated : 03/13/22 at 8:40 am Service Date, if different from initiated Date: [] Patient: Tobias Richards 71 y/o M admitted on 03/11/22 for R side pain. Chief Complaint: [] Interval history: Mr. Richards is a 71 year old with a history of hypertension, hyperlipidemia, COPD, DVT on Coumadin, developmental delay, chronic right lower extremity wound secondary to venous insufficiency was brought to the emergency room by his power of quality assurance assistant for right-sided chest pain. His chest pain been going on for several days, the patient had a fall at home prior to developing the chest pain. He says that he fell on his left outside while walking outside. The patient says his chest pain is pleuritic in nature and seems to be worsening. In the emergency department, patient had an oxygen requirement of 1 L/min. He has leukocytosis, a D-dimer was elevated therefore a CTA chest was ordered and reportedly shows a right upper lobe pneumonia, no PE reported. Hospital medicine was consulted for admission for the patient's oxygen requirement in the setting of pneumonia. The patient did not appear to be in any respiratory distress, he was on 1 L/min nasal cannula oxygen supplementation. He is accompanied by his power of quality assurance assistant whom he lives with and who watches over him. She assisted with providing the history of the patient's recent symptoms. She says that he broke his teeth and cut his chin from his recent fall. The patient did come into the ED after the fall, the chin laceration was closed up at that time and appears stable at the time of admission. / Wean off oxygen supplementation to room air, the patient is feeling better. Sputum culture pending. SARS-CoV-2, influenza A, influenza B, RSV PCR negative. Continue ceftriaxone and azithromycin. / Patient feeling okay. He does complain of cough. But denies shortness of breath at rest. Review of Systems: denies headache/fever/chills/nausea/vomiting/chest or abdominal pain/diarrhea. Otherwise see above. Constitutional Vitals: Vital Signs Temp Pulse Resp BP Pulse Ox O2 Del Method O2 Flow Rate 97.7 F 70 20 123/78 90 0 03/13/22 08:00 03/13/22 08:00 03/13/22 08:00 03/13/22 08:00 03/13/22 08:00 03/13/22 08:00 03/12/22 20:00 Period Temp Pulse Resp BP Sys/[place] Pulse Ox O2 Del Method O2 Flow Rate Last 24 Hr 97.4 F-98.1 F 57-70 20-24 97-140/64-78 90-93 Room Air-Room Air 0 Intake and Output 03/12/22 03/13/22 03/13/22 19:59 03:59 11:59 Intake Total 2130 640 Output Total 300 325 Balance 1830 315 Weight 63.231 kg Intake & Output: Intake & Output 03/12/22 03/13/22 03/13/22 19:59 03:59 11:59 Intake Total 2130 640 Output Total 300 325 Balance 1830 315 Weight 63.231 kg Intake: IV 1250 Sodium Chloride 0.9% 1,000 ml @ 1000 100 mls/hr IV .Q10H [facility] Rx#: [id number] Zithromax 500 mg In Dextrose 5% 250 in Water 250 ml @ 250 mls/hr IV Q24H [facility] Rx#:[id number] Oral 880 640 Output: Void Amount 300 325 Other: Meal Dinner Percent of Meal Consumed 100% Feeding Ability Independent Urine Appearance Clear Urine Color Dark Yellow Bright Yellow Urine Odor Strong Stool Size Large Stool Color Brown Stool Consistency Formed # Voids 1 # Bowel Movements 1 Exam: General: Alert, Awake, No acute Distress Eyes/N/T: EOMI, Head/Neck: neck supple, Recent laceration on the chin, closed up and appears stable. CV: RRR, No murmurs, Pulm: Clear b/l, no wheezing/rhonchi/rales Abd: soft, nontender, +BS x4 Ext: no clubbing/cyanosis/edema Neuro: Alert, no focal deficits, moves all extremities, Skin: warm/dry OBJ DATA Labs CBC & Chem 7: 03/13/22 05:29 03/13/22 05:29 Labs: Abnormal Lab Results 03/13/22 03/13/22 03/13/22 05:29 05:29 05:27 WBC 12.1 H RBC 4.54 L RDW 14.8 H Lymph % (Auto) 13.8 L [place] # (Auto) 1.26 H Immature Gran # 0.06 H Absolute Neutrophils 8.43 H PT 19.1 H INR 1.5 H D-Dimer Anion Gap 6.0 L POC BUN BUN 33 H Calcium 8.1 L POC WB Ioniz Calcium Lactate Dehydrogenase 282 H Total Protein 5.2 L Albumin 2.7 L 03/12/22 03/12/22 03/12/22 05:49 05:49 05:48 WBC 11.3 H RBC 4.33 L RDW 14.6 H Lymph % (Auto) [place] # (Auto) 1.36 H Immature Gran # Absolute Neutrophils PT 19.7 H INR 1.6 H D-Dimer Anion Gap 6.0 L POC BUN BUN Calcium 8.0 L POC WB Ioniz Calcium Lactate Dehydrogenase 241 H Total Protein 5.1 L Albumin 2.8 L 03/11/22 03/11/22 03/11/22 17:10 17:10 17:06 WBC 12.0 H RBC RDW 14.6 H Lymph % (Auto) 13.5 L [place] # (Auto) 1.37 H Immature Gran # Absolute Neutrophils 8.79 H PT INR D-Dimer 0.95 H Anion Gap POC BUN 23 H BUN Calcium POC WB Ioniz Calcium 1.10 L Lactate Dehydrogenase Total Protein Albumin Meds: Medications Acetaminophen (Acetaminophen 325 Mg Tablet) 650 mg PO Q6HP PRN; Protocol PRN Reason: Per Pain Protocol/Fever > 101 Last Admin: 03/13/22 08:28 Dose: 650 mg Hydrocodone Bitart/Acetaminophen (Hydrocodone/Apap 5/325mg Tablet) 1 tab PO Q4HP PRN; Protocol PRN Reason: Per Pain Protocol Albuterol Sulfate (Albuterol Sulfate 2.5 Mg/3 Ml Nebulizer) 2.5 mg NEB Q2HP PRN PRN Reason: Shortness Of Breath Ceftriaxone Sodium (Ceftriaxone 1 Gm Vial) 1 gm IV Q24H [facility]; Protocol Last Admin: 03/13/22 08:25 Dose: 1 gm Dicyclomine HCl (Dicyclomine 20 Mg Tablet) 20 mg PO QPM [facility] Last Admin: 03/12/22 20:37 Dose: 20 mg Divalproex Sodium (Divalproex Sodium 250 Mg Tablet) 250 mg PO QPM [facility] Last Admin: 03/12/22 20:37 Dose: 250 mg Docusate Sodium (Docusate Sodium 100 Mg Capsule) 100 mg PO BID [facility] Last Admin: 03/13/22 08:30 Dose: 100 mg Fluoxetine HCl (Fluoxetine Hcl 20 Mg Capsule) 40 mg PO DAILY [facility] Last Admin: 03/13/22 08:30 Dose: 40 mg Folic Acid (Folic Acid 1 Mg Tablet) 1 mg PO QDAY [facility] Last Admin: 03/13/22 08:30 Dose: 1 mg Hydrochlorothiazide (Hydrochlorothiazide 12.5 Mg Capsule) 12.5 mg PO DAILY [facility] Last Admin: 03/13/22 08:26 Dose: 12.5 mg Azithromycin 500 mg/ Dextrose 250 mls @ 250 mls/hr IV Q24H [facility]; Protocol Stop: 03/13/22 10:59 Last Infusion: 03/12/22 19:11 Dose: Infused Ondansetron HCl (Ondansetron 4 Mg/2 Ml Vial) 4 mg IV Q6HP PRN PRN Reason: Nausea And Vomiting Pramipexole Dihydrochloride (Pramipexole 0.25 Mg Tablet) 0.25 mg PO QPM [facility] Last Admin: 03/12/22 20:37 Dose: 0.25 mg Senna (Sennosides 1 Tablet) 2 tab PO [facility] Last Admin: 03/12/22 20:37 Dose: 2 tab Simvastatin (Simvastatin 20 Mg Tablet) 20 mg PO [facility] Last Admin: 03/12/22 20:37 Dose: 20 mg Sodium Chloride (0.9 % Sodium Chloride 10 Ml Syringe) 10 ml IV Q8 [facility] Last Admin: 03/13/22 05:42 Dose: Not Given Warfarin Sodium (Warfarin Per Pharmacy) 1 order PO UD [facility] Warfarin Sodium (Warfarin 3 Mg Tablet) 3 mg PO DAILY@1400 [facility] Stop: 03/13/22 17:00 A/P Narrative A/P Narrative: A: #Community-acquired pneumonia: #Acute hypoxic respiratory failure: 2/2 above -Now on room air #Pleuritic right chest pain: 2/2 pneumonia #Hypertension/Hyperlipidemia: #COPD not in exacerbation #Possible pulmonary hypertension #h/o DVT: on Coumadin #RLE chronic wound #Developmental delay: Plan: -Ceftriaxone and azithromycin IV. -Follow sputum gram stain and culture. -Analgesics for pleuritic chest pain. -Incentive spirometry. Albuterol nebs as needed. -Follow WBC. -Discontinue IV fluid. -Coumadin per pharmacy. -Continue home Depakote, fluoxetine, hydrochlorothiazide, dicyclomine. -Wound care consult. -ppx: Coumadin per pharmacy Time Spent With Patient Time: Total time spent is greater than 50% in coordination of care (as documented) at patient's floor/unit and/or counseling patient: Total time spent with greater than 50% in coordination of care (as documented) at patient's floor/unit and/or counseling patient:: 35 - 50 minutes QUALITY Stroke Symptom Onset Unknown: No VTE Deep Vein Thrombosis/Pulmonary Embolism Present on Admission: No
[2022-03-13] MEDS: AZITHROMYCIN 500 MG in DEXTROSE 5% IN WATER 250 ML IV SCH (09:11)
--- NOTE | 2022-03-13 10:25 | EKG ---
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 Measurements Intervals [place] Rate: 69 P: 50 MN: 157 QRS: 154 QRSD: 94 T: -10 QT: 422 QTc: 446 Interpretive Statements Sinus rhythm Ventricular premature complex RVH with secondary repolarization abnrm Nonspecific T wave changes Electronically Signed On 03-13-2022 10:25:11 PST by Preethi Hernandez D.O. /[email or web address]/[id number]
[2022-03-13] MEDS ORDERED: WARFARIN 3 MG TABLET PO SCH (14:00)
[2022-03-13] MEDS: HYDROcodone/APAP 5/325MG TABLET PO PRN (21:25)
[2022-03-13] MEDS: SIMVASTATIN 20 MG TABLET PO SCH (21:25)
[2022-03-13] MEDS: SENNOSIDES 1 TABLET PO SCH (21:26)
[2022-03-13] MEDS: DIVALPROEX SODIUM 250 MG TABLET PO SCH (21:26)
[2022-03-13] MEDS: DICYCLOMINE 20 MG TABLET PO SCH (21:27)
[2022-03-13] MEDS: PRAMIPEXOLE 0.25 MG TABLET PO SCH (21:27)
[2022-03-14] MEDS: 0.9 % SODIUM CHLORIDE 10 ML SYRINGE IV SCH ×3 (05:28→20:04)
[2022-03-14 06:46] LABS: Basophils # (Auto) 0.05 K/mcL (0.00-0.30); Basophils % (Auto) 0.4 % (0.0-2.0); Eosinophils # (Auto) 0.36 K/mcL (0.00-0.70); Eosinophils % (Auto) 2.6 % (0.0-7.0); Hemoglobin 14.9 g/dL (13.7-17.5); Lymphocytes # (Auto) 1.35 K/mcL (1.50-4.80); Lymphocytes % (Auto) 9.7 % (15.5-49.0); Mean Cell Volume 94.1 fL (80.0-100.0); Mean Corpuscular HGB Conc 34.7 g/dL (31.0-36.0); Mean Platelet Volume 10.4 fL (8.8-12.5); Monocytes # (Auto) 1.26 K/mcL (0.10-0.90); Monocytes % (Auto) 9.1 % (1.0-12.0); Neutrophils % (Auto) 77.7 % (38.0-78.0); Platelet Count 212 K/mcL (140-440); RBC 4.57 M/mcL (4.63-6.08); Red Cell Distribution Width 14.6 % (11.5-14.5); WBC 13.9 K/mcL (4.5-11.0)
[2022-03-14 07:08] LABS: INR 2.1 (0.9-1.1)
[2022-03-14 07:38] LABS: ALT/SGPT 18 U/L (<40); AST/SGOT 25 U/L (<40); Albumin/Globulin Ratio 1.2 (1.0-2.3); Alkaline Phosphatase 90 U/L (39-117); Bilirubin,Direct < 0.2 mg/dL (0-0.3); Bilirubin,Total 0.6 mg/dL (0.1-1.0); Blood Urea Nitrogen 20 mg/dL (8-23); Calcium 8.6 mg/dL (8.6-10.4); Carbon Dioxide 22 mmol/L (22-30); Chloride 107 mmol/L (96-108); Globulin 2.6 gm/dL (2.2-3.7); Glomerular Filtration Rate 86; Glucose 80 mg/dL (70-105); Lactate Dehydrogenase 307 U/L (135-225); Phosphorous 3.2 mg/dL (2.5-4.5); Triglycerides 77 mg/dL (<150); Uric Acid 6.1 mg/dL (2.5-8.0)
--- NOTE | 2022-03-14 08:14 | Internal Med Progress Note ---
SUBJECTIVE Subjective Patient information: Note initiated : 03/14/22 at 8:10 am Service Date, if different from initiated Date: [] Patient: Tobias Richards 71 y/o M admitted on 03/11/22 for R side pain. Chief Complaint: [] Interval history: Mr. Richards is a 71 year old with a history of hypertension, hyperlipidemia, COPD, DVT on Coumadin, developmental delay, chronic right lower extremity wound secondary to venous insufficiency was brought to the emergency room by his power of senior attorney for right-sided chest pain. His chest pain been going on for several days, the patient had a fall at home prior to developing the chest pain. He says that he fell on his left outside while walking outside. The patient says his chest pain is pleuritic in nature and seems to be worsening. In the emergency department, patient had an oxygen requirement of 1 L/min. He has leukocytosis, a D-dimer was elevated therefore a CTA chest was ordered and reportedly shows a right upper lobe pneumonia, no PE reported. Hospital medicine was consulted for admission for the patient's oxygen requirement in the setting of pneumonia. The patient did not appear to be in any respiratory distress, he was on 1 L/min nasal cannula oxygen supplementation. He is accompanied by his power of senior attorney whom he lives with and who watches over him. She assisted with providing the history of the patient's recent symptoms. She says that he broke his teeth and cut his chin from his recent fall. The patient did come into the ED after the fall, the chin laceration was closed up at that time and appears stable at the time of admission. 1/ Wean off oxygen supplementation to room air, the patient is feeling better. Sputum culture pending. SARS-CoV-2, influenza A, influenza B, RSV PCR negative. Continue ceftriaxone and azithromycin. / Patient feeling okay. He does complain of cough. But denies shortness of breath at rest. 03/14 Per nursing patient started requiring oxygen again last night. No signs of aspiration when eating per nursing. Leukocytosis mildly worsened. We will check for bandemia and procalcitonin levels. Obtain chest x-ray. Review of Systems: denies headache/fever/chills/nausea/vomiting/chest or abdominal pain/diarrhea. Otherwise see above. Constitutional Vitals: Vital Signs Temp Pulse Resp BP Pulse Ox O2 Del Method O2 Flow Rate 97.3 F 76 22 125/78 91 1.5 03/14/22 07:26 03/14/22 07:26 03/14/22 07:26 03/14/22 07:26 03/14/22 07:26 03/14/22 07:26 03/14/22 07:26 Period Temp Pulse Resp BP Sys/[place] Pulse Ox O2 Del Method O2 Flow Rate Last 24 Hr 97.3 F-98.6 F 64-76 20-30 100-130/71-83 90-94 Nasal Cannula- Room Air 1.5-1.5 Intake and Output 03/13/22 03/14/22 03/14/22 19:59 03:59 11:59 Intake Total 250 300 Balance 250 300 Weight 63.185 kg Intake & Output: Intake & Output 03/13/22 03/14/22 03/14/22 19:59 03:59 11:59 Intake Total 250 300 Balance 250 300 Weight 63.185 kg Intake: IV 250 Zithromax 500 mg In Dextrose 5% 250 in Water 250 ml @ 250 mls/hr IV Q24H [facility] Rx#:[id number] Oral 300 Other: Meal Dinner Percent of Meal Consumed 100% Feeding Ability Independent Urine Appearance Clear Clear Urine Color Yellow Bright Yellow Urine Odor Normal # Voids 1 1 1 Exam: General: Alert, Awake, No acute Distress Eyes/N/T: EOMI, Head/Neck: neck supple, Recent laceration on the chin, closed up and appears stable. CV: RRR, No murmurs, Pulm: rhonchi right base, no wheezing/ Abd: soft, nontender, +BS x4 Ext: no clubbing/cyanosis/edema Neuro: Alert, no focal deficits, moves all extremities, Skin: warm/dry OBJ DATA Labs CBC & Chem 7: 03/14/22 05:25 03/14/22 05:24 Labs: Abnormal Lab Results 03/14/22 03/14/22 03/14/22 05:25 05:24 05:24 WBC 13.9 H RBC 4.57 L RDW 14.6 H Lymph % (Auto) 9.7 L Lymph # (Auto) 1.35 L [place] # (Auto) 1.26 H Immature Gran # 0.07 H Absolute Neutrophils 10.82 H PT 24.0 H INR 2.1 H D-Dimer Anion Gap POC BUN BUN Calcium POC WB Ioniz Calcium Lactate Dehydrogenase 307 H Total Protein 5.6 L Albumin 3.0 L 03/13/22 03/13/22 03/13/22 05:29 05:29 05:27 WBC 12.1 H RBC 4.54 L RDW 14.8 H Lymph % (Auto) 13.8 L Lymph # (Auto) [place] # (Auto) 1.26 H Immature Gran # 0.06 H Absolute Neutrophils 8.43 H PT 19.1 H INR 1.5 H D-Dimer Anion Gap 6.0 L POC BUN BUN 33 H Calcium 8.1 L POC WB Ioniz Calcium Lactate Dehydrogenase 282 H Total Protein 5.2 L Albumin 2.7 L 03/12/22 03/12/22 03/12/22 05:49 05:49 05:48 WBC 11.3 H RBC 4.33 L RDW 14.6 H Lymph % (Auto) Lymph # (Auto) [place] # (Auto) 1.36 H Immature Gran # Absolute Neutrophils PT 19.7 H INR 1.6 H D-Dimer Anion Gap 6.0 L POC BUN BUN Calcium 8.0 L POC WB Ioniz Calcium Lactate Dehydrogenase 241 H Total Protein 5.1 L Albumin 2.8 L 03/11/22 03/11/22 03/11/22 17:10 17:10 17:06 WBC 12.0 H RBC RDW 14.6 H Lymph % (Auto) 13.5 L Lymph # (Auto) [place] # (Auto) 1.37 H Immature Gran # Absolute Neutrophils 8.79 H PT INR D-Dimer 0.95 H Anion Gap POC BUN 23 H BUN Calcium POC WB Ioniz Calcium 1.10 L Lactate Dehydrogenase Total Protein Albumin Meds: Medications Acetaminophen (Acetaminophen 325 Mg Tablet) 650 mg PO Q6HP PRN; Protocol PRN Reason: Per Pain Protocol/Fever > 101 Last Admin: 03/13/22 15:34 Dose: 650 mg Hydrocodone Bitart/Acetaminophen (Hydrocodone/Apap 5/325mg Tablet) 1 tab PO Q4HP PRN; Protocol PRN Reason: Per Pain Protocol Last Admin: 03/13/22 21:25 Dose: 1 tab Albuterol Sulfate (Albuterol Sulfate 2.5 Mg/3 Ml Nebulizer) 2.5 mg NEB Q2HP PRN PRN Reason: Shortness Of Breath Ceftriaxone Sodium (Ceftriaxone 1 Gm Vial) 1 gm IV Q24H [facility]; Protocol Last Admin: 03/13/22 08:25 Dose: 1 gm Dicyclomine HCl (Dicyclomine 20 Mg Tablet) 20 mg PO QPM [facility] Last Admin: 03/13/22 21:27 Dose: 20 mg Divalproex Sodium (Divalproex Sodium 250 Mg Tablet) 250 mg PO QPM [facility] Last Admin: 03/13/22 21:26 Dose: 250 mg Docusate Sodium (Docusate Sodium 100 Mg Capsule) 100 mg PO BID [facility] Last Admin: 03/13/22 21:25 Dose: 100 mg Fluoxetine HCl (Fluoxetine Hcl 20 Mg Capsule) 40 mg PO DAILY [facility] Last Admin: 03/13/22 08:30 Dose: 40 mg Folic Acid (Folic Acid 1 Mg Tablet) 1 mg PO QDAY [facility] Last Admin: 03/13/22 08:30 Dose: 1 mg Hydrochlorothiazide (Hydrochlorothiazide 12.5 Mg Capsule) 12.5 mg PO DAILY [facility] Last Admin: 03/13/22 08:26 Dose: 12.5 mg Ondansetron HCl (Ondansetron 4 Mg/2 Ml Vial) 4 mg IV Q6HP PRN PRN Reason: Nausea And Vomiting Pramipexole Dihydrochloride (Pramipexole 0.25 Mg Tablet) 0.25 mg PO QPM [facility] Last Admin: 03/13/22 21:27 Dose: 0.25 mg Senna (Sennosides 1 Tablet) [address] [facility] Last Admin: 03/13/22 21:26 Dose: 2 tab Simvastatin (Simvastatin 20 Mg Tablet) [address] [facility] Last Admin: 03/13/22 21:25 Dose: 20 mg Sodium Chloride (0.9 % Sodium Chloride 10 Ml Syringe) 10 ml IV Q8 [facility] Last Admin: 03/14/22 05:28 Dose: 10 ml Warfarin Sodium (Warfarin Per Pharmacy) 1 order PO [facility] Warfarin Sodium (Warfarin 2 Mg Tablet) 2 mg PO DAILY@1400 [facility] Stop: 03/14/22 17:00 A/P Narrative A/P Narrative: A: #Community-acquired pneumonia: #Acute hypoxic respiratory failure: 2/2 above -was on room air, now on 1.5L #Pleuritic right chest pain: 2/2 pneumonia #Hypertension/Hyperlipidemia: #COPD not in exacerbation / Pulmonary fibrosis: #Possible pulmonary hypertension #h/o DVT: on Coumadin #RLE chronic wound #Developmental delay: Plan: -Ceftriaxone and azithromycin IV. -Follow sputum gram stain and culture. -cxr and pct -ST eval -Analgesics for pleuritic chest pain. -Incentive spirometry. Albuterol nebs as needed. -Follow WBC and check man diff. -Continue home Depakote, fluoxetine, hydrochlorothiazide, dicyclomine. -Wound care consult. -ppx: Coumadin per pharmacy Time Spent With Patient Time: Total time spent is greater than 50% in coordination of care (as documented) at patient's floor/unit and/or counseling patient: Total time spent with greater than 50% in coordination of care (as documented) at patient's floor/unit and/or counseling patient:: 50 - 70 minutes QUALITY Stroke Symptom Onset Unknown: No VTE Deep Vein Thrombosis/Pulmonary Embolism Present on Admission: No
[2022-03-14] MEDS: DOCUSATE SODIUM 100 MG CAPSULE PO SCH ×2 (08:41→20:41)
[2022-03-14] MEDS: cefTRIAXone 1 GM VIAL IV SCH (08:41)
[2022-03-14] MEDS: HYDROCHLOROTHIAZIDE 12.5 MG CAPSULE PO SCH (08:41)
[2022-03-14] MEDS: FOLIC ACID 1 MG TABLET PO SCH (08:41)
[2022-03-14] MEDS: FLUoxetine HCL 20 MG CAPSULE PO SCH (08:41)
[2022-03-14] MEDS: HYDROcodone/APAP 5/325MG TABLET PO PRN (08:43)
--- NOTE | 2022-03-14 09:24 | XRay Report ---
CLINICAL INFORMATION: Hypoxia COMPARISON: 08/04/2018 TECHNIQUE: Portable FINDINGS: Moderate cardiomegaly is unchanged. Mediastinum and pulmonary vasculature unremarkable. Moderate infiltrates or developed in both upper lungs more prominent on the right side. No effusions. IMPRESSION: Moderate bilateral upper lung infiltrates. Suspect infection or aspiration Interpreted and Authenticated by: Steven Costa 03/14/22
[2022-03-14 09:46] LABS: Eosinophils % (Manual) 4 % (0-7); Lymphocytes % 15 % (15-49); Monocytes % (Manual) 7 % (1-12); Platelet Estimate NORMAL (Normal); RBC Morphology NORMAL (Normal); Segmented Neutrophils % 74 % (38-78)
[2022-03-14] MEDS ORDERED: WARFARIN 2 MG TABLET PO SCH (14:00)
[2022-03-14] MEDS ORDERED: FUROSEMIDE 40 MG/4 ML VIAL IV SCH (17:24)
[2022-03-14] MEDS ORDERED: ALBUMIN HUMAN 12.5 GM/50 ML BAG IV SCH (17:24)
[2022-03-14] MEDS: SIMVASTATIN 20 MG TABLET PO SCH (20:41)
[2022-03-14] MEDS: DICYCLOMINE 20 MG TABLET PO SCH (20:41)
[2022-03-14] MEDS: DIVALPROEX SODIUM 250 MG TABLET PO SCH (20:41)
[2022-03-14] MEDS: PRAMIPEXOLE 0.25 MG TABLET PO SCH (20:42)
[2022-03-14] MEDS: SENNOSIDES 1 TABLET PO SCH (20:42)
--- NOTE | 2022-03-15 01:02 | Internal Med Progress Note ---
SUBJECTIVE Subjective Patient information: Note initiated : 03/15/22 at 1:00 am Service Date, if different from initiated Date: [] Patient: Tobias Richards 71 y/o M admitted on 03/11/22 for R side pain. Chief Complaint: [] Interval history: Mr. Richards is a 71 year old with a history of hypertension, hyperlipidemia, COPD, DVT on Coumadin, developmental delay, chronic right lower extremity wound secondary to venous insufficiency was brought to the emergency room by his power of finance attorney for right-sided chest pain. His chest pain been going on for several days, the patient had a fall at home prior to developing the chest pain. He says that he fell on his left outside while walking outside. The patient says his chest pain is pleuritic in nature and seems to be worsening. In the emergency department, patient had an oxygen requirement of 1 L/min. He has leukocytosis, a D-dimer was elevated therefore a CTA chest was ordered and reportedly shows a right upper lobe pneumonia, no PE reported. Hospital medicine was consulted for admission for the patient's oxygen requirement in the setting of pneumonia. The patient did not appear to be in any respiratory distress, he was on 1 L/min nasal cannula oxygen supplementation. He is accompanied by his power of finance attorney whom he lives with and who watches over him. She assisted with providing the history of the patient's recent symptoms. She says that he broke his teeth and cut his chin from his recent fall. The patient did come into the ED after the fall, the chin laceration was closed up at that time and appears stable at the time of admission. 1/ Wean off oxygen supplementation to room air, the patient is feeling better. Sputum culture pending. SARS-CoV-2, influenza A, influenza B, RSV PCR negative. Continue ceftriaxone and azithromycin. 03/13 Patient feeling okay. He does complain of cough. But denies shortness of breath at rest. 03/14 Per nursing patient started requiring oxygen again last night. No signs of aspiration when eating per nursing. Leukocytosis mildly worsened. We will check for bandemia and procalcitonin levels. Obtain chest x-ray. 03/15 Patient sitting in chair eating breakfast. No overnight or new complaints. Patient says he feels better but when asked describe specifically why feels better can really give an answer. Put out 4 L yesterday with Lasix. Echo pending. BNP yesterday 4700. f/u cxr. Review of Systems: denies headache/fever/chills/nausea/vomiting/chest or abdominal pain/diarrhea. Otherwise see above. Constitutional Vitals: Vital Signs Temp Pulse Resp BP Pulse Ox O2 Del Method O2 Flow Rate 97.5 F 77 22 138/71 92 1.5 03/14/22 18:13 03/14/22 16:00 03/14/22 07:26 03/14/22 16:00 03/14/22 16:00 03/14/22 16:00 03/14/22 16:00 Period Temp Pulse Resp BP Sys/[place] Pulse Ox O2 Del Method O2 Flow Rate Last 24 Hr 97.3 F-98.5 F 69-77 22-22 99-138/66-78 91-92 Nasal Cannula- Nasal Cannula 1.5-1.5 Intake and Output 03/14/22 03/14/22 03/15/22 11:59 19:59 03:59 Intake Total 150 Output Total 1040 Balance -890 Weight 63.185 kg Patient Weight 03/15/22 03:59 Weight 63.185 kg Intake & Output: Intake & Output 03/14/22 03/14/22 03/15/22 11:59 19:59 03:59 Intake Total 150 Output Total 1040 Balance -890 Weight 63.185 kg Intake: Oral 150 Output: Void Amount 1040 Other: Meal Breakfast Lunch Percent of Meal Consumed 100% 75% Feeding Ability Independent Independent Urine Appearance Clear Urine Color Yellow Urine Odor Normal # Voids 1 Exam: General: Alert, Awake, No acute Distress Eyes/N/T: EOMI, Head/Neck: neck supple, Recent laceration on the chin, closed up and appears stable. CV: RRR, No murmurs, Pulm: rhonchi right base clearing today, no wheezing Abd: soft, nontender, +BS x4 Ext: no clubbing/cyanosis/edema Neuro: Alert, no focal deficits, moves all extremities, Skin: warm/dry OBJ DATA Labs CBC & Chem 7: 03/15/22 05:24 03/15/22 05:25 Labs: Abnormal Lab Results 03/14/22 03/14/22 03/14/22 17:49 05:25 05:25 WBC 13.9 H RBC 4.57 L RDW 14.6 H Lymph % (Auto) 9.7 L Lymph # (Auto) 1.35 L [place] # (Auto) 1.26 H Immature Gran # 0.07 H Absolute Neutrophils 10.82 H PT INR Anion Gap BUN Calcium Lactate Dehydrogenase C-Reactive Protein 4.50 H NT-Pro-B Natriuret Pep 4746.0 H Total Protein Albumin 03/14/22 03/14/22 03/13/22 05:24 05:24 05:29 WBC RBC RDW Lymph % (Auto) Lymph # (Auto) [place] # (Auto) Immature Gran # Absolute Neutrophils PT 24.0 H INR 2.1 H Anion Gap 6.0 L BUN 33 H Calcium 8.1 L Lactate Dehydrogenase 307 H 282 H C-Reactive Protein NT-Pro-B Natriuret Pep Total Protein 5.6 L 5.2 L Albumin 3.0 L 2.7 L 03/13/22 03/13/22 03/12/22 05:29 05:27 05:49 WBC 12.1 H RBC 4.54 L RDW 14.8 H Lymph % (Auto) 13.8 L Lymph # (Auto) [place] # (Auto) 1.26 H Immature Gran # 0.06 H Absolute Neutrophils 8.43 H PT 19.1 H INR 1.5 H Anion Gap 6.0 L BUN Calcium 8.0 L Lactate Dehydrogenase 241 H C-Reactive Protein NT-Pro-B Natriuret Pep Total Protein 5.1 L Albumin 2.8 L 03/12/22 03/12/22 05:49 05:48 WBC 11.3 H RBC 4.33 L RDW 14.6 H Lymph % (Auto) Lymph # (Auto) [place] # (Auto) 1.36 H Immature Gran # Absolute Neutrophils PT 19.7 H INR 1.6 H Anion Gap BUN Calcium Lactate Dehydrogenase C-Reactive Protein NT-Pro-B Natriuret Pep Total Protein Albumin Meds: Medications Acetaminophen (Acetaminophen 325 Mg Tablet) 650 mg PO Q6HP PRN; Protocol PRN Reason: Per Pain Protocol/Fever > 101 Last Admin: 03/13/22 15:34 Dose: 650 mg Hydrocodone Bitart/Acetaminophen (Hydrocodone/Apap 5/325mg Tablet) 1 tab PO Q4HP PRN; Protocol PRN Reason: Per Pain Protocol Last Admin: 03/14/22 08:43 Dose: 1 tab Albuterol Sulfate (Albuterol Sulfate 2.5 Mg/3 Ml Nebulizer) 2.5 mg NEB Q2HP PRN PRN Reason: Shortness Of Breath Ceftriaxone Sodium (Ceftriaxone 1 Gm Vial) 1 gm IV Q24H [facility]; Protocol Last Admin: 03/14/22 08:41 Dose: 1 gm Dicyclomine HCl (Dicyclomine 20 Mg Tablet) 20 mg PO QPM [facility] Last Admin: 03/14/22 20:41 Dose: 20 mg Divalproex Sodium (Divalproex Sodium 250 Mg Tablet) 250 mg PO QPM [facility] Last Admin: 03/14/22 20:41 Dose: 250 mg Docusate Sodium (Docusate Sodium 100 Mg Capsule) 100 mg PO BID [facility] Last Admin: 03/14/22 20:41 Dose: 100 mg Fluoxetine HCl (Fluoxetine Hcl 20 Mg Capsule) 40 mg PO DAILY [facility] Last Admin: 03/14/22 08:41 Dose: 40 mg Folic Acid (Folic Acid 1 Mg Tablet) 1 mg PO QDAY [facility] Last Admin: 03/14/22 08:41 Dose: 1 mg Hydrochlorothiazide (Hydrochlorothiazide 12.5 Mg Capsule) 12.5 mg PO DAILY [facility] Last Admin: 03/14/22 08:41 Dose: 12.5 mg Ondansetron HCl (Ondansetron 4 Mg/2 Ml Vial) 4 mg IV Q6HP PRN PRN Reason: Nausea And Vomiting Pramipexole Dihydrochloride (Pramipexole 0.25 Mg Tablet) 0.25 mg PO QPM [facility] Last Admin: 03/14/22 20:42 Dose: 0.25 mg Senna (Sennosides 1 Tablet) 2 tab PO [facility] Last Admin: 03/14/22 20:42 Dose: 2 tab Simvastatin (Simvastatin 20 Mg Tablet) 20 mg PO [facility] Last Admin: 03/14/22 20:41 Dose: 20 mg Sodium Chloride (0.9 % Sodium Chloride 10 Ml Syringe) 10 ml IV Q8 [facility] Last Admin: 03/14/22 20:04 Dose: 10 ml Warfarin Sodium (Warfarin Per Pharmacy) 1 order PO UD [facility] A/P Narrative A/P Narrative: A: #Community-acquired pneumonia : -leukocytosis now improving, no bandemia #Acute hypoxic respiratory failure: 2/2 above -was on room air, then 2.5 and now on 1L #Pleuritic right chest pain: 2/2 pneumonia #Acute decompensated CHF w/sever Pulm HTN: -echo EF 50-55, RA severely dilated, mot TR, mildly reduced RV systolic dysfxn #Sever Pulm HTN: #Hypertension/Hyperlipidemia: #COPD not in exacerbation / Pulmonary fibrosis: #Possible pulmonary hypertension #h/o DVT: on Coumadin #RLE chronic wound #Developmental delay: Plan: -Ceftriaxone and azithromycin IV. -Follow sputum gram stain and culture. -echo pending -IV lasix -ST eval, could not rule out silent aspiration, mod barium swallow now pending -Analgesics for pleuritic chest pain. -Incentive spirometry. Albuterol nebs as needed. -Follow WBC -Continue home Depakote, fluoxetine, hydrochlorothiazide, dicyclomine. -Wound care consult. -ppx: Coumadin per pharmacy Time Spent With Patient Time: Total time spent is greater than 50% in coordination of care (as documented) at patient's floor/unit and/or counseling patient: Total time spent with greater than 50% in coordination of care (as documented) at patient's floor/unit and/or counseling patient:: 35 - 50 minutes QUALITY Stroke Symptom Onset Unknown: No VTE Deep Vein Thrombosis/Pulmonary Embolism Present on Admission: No
[2022-03-15] MEDS: 0.9 % SODIUM CHLORIDE 10 ML SYRINGE IV SCH ×3 (04:19→20:32)
[2022-03-15 06:50] LABS: Basophils # (Auto) 0.06 K/mcL (0.00-0.30); Basophils % (Auto) 0.5 % (0.0-2.0); Eosinophils # (Auto) 0.39 K/mcL (0.00-0.70); Eosinophils % (Auto) 3.1 % (0.0-7.0); Hematocrit 43.6 % (40.1-51.0); Hemoglobin 14.6 g/dL (13.7-17.5); Lymphocytes # (Auto) 1.48 K/mcL (1.50-4.80); Lymphocytes % (Auto) 11.9 % (15.5-49.0); Mean Cell Volume 93.8 fL (80.0-100.0); Mean Corpuscular HGB Conc 33.5 g/dL (31.0-36.0); Mean Platelet Volume 10.1 fL (8.8-12.5); Monocytes # (Auto) 1.64 K/mcL (0.10-0.90); Monocytes % (Auto) 13.2 % (1.0-12.0); Neutrophils % (Auto) 70.9 % (38.0-78.0); Platelet Count 222 K/mcL (140-440); RBC 4.65 M/mcL (4.63-6.08); Red Cell Distribution Width 14.6 % (11.5-14.5); WBC 12.4 K/mcL (4.5-11.0)
[2022-03-15 07:11] LABS: Blood Urea Nitrogen 20 mg/dL (8-23); Calcium 8.5 mg/dL (8.6-10.4); Carbon Dioxide 30 mmol/L (22-30); Chloride 105 mmol/L (96-108); Glomerular Filtration Rate 76; Glucose 84 mg/dL (70-105)
[2022-03-15 07:19] LABS: INR 3.2 (0.9-1.1)
[2022-03-15] MEDS: FOLIC ACID 1 MG TABLET PO SCH (09:15)
[2022-03-15] MEDS: FLUoxetine HCL 20 MG CAPSULE PO SCH (09:15)
[2022-03-15] MEDS: HYDROCHLOROTHIAZIDE 12.5 MG CAPSULE PO SCH (09:15)
[2022-03-15] MEDS: DOCUSATE SODIUM 100 MG CAPSULE PO SCH ×2 (09:15→20:32)
[2022-03-15] MEDS: cefTRIAXone 1 GM VIAL IV SCH (09:22)
[2022-03-15] MEDS ORDERED: FUROSEMIDE 40 MG/4 ML VIAL IV ONE (09:27)
--- NOTE | 2022-03-15 09:50 | XRay Report ---
CLINICAL INFORMATION: Right chest pain COMPARISON: 03/14/2022 TECHNIQUE: Portable FINDINGS: Moderate cardiomegaly has decreased. Mediastinum is unremarkable. Pulmonary vessels have returned normal in caliber. Upper lobe edema has improved considerably with modest residual in the left upper lobe. No effusion IMPRESSION: Marked improvement in atypical CHF Interpreted and Authenticated by: Steven Costa 03/15/22
[2022-03-15] MEDS: HYDROcodone/APAP 5/325MG TABLET PO PRN (13:17)
--- NOTE | 2022-03-15 14:54 | Discharge Summary ---
Discharge Provider Provider IMPORTANT FOLLOW-UP INFORMATION FOR PCP: Patient information: Note initiated : 03/15/22 at 2:52 pm Service Date, if different from initiated Date: [] Patient: Tobias Richards 71 y/o M admitted on 03/11/22 for R side pain. Chief Complaint: [] Date of admission: 03/11/22 20:47 Discharge date: 03/16/22 Primary care physician: Steven Pacheco DO Consults: 03/11/22 Consult to Physician [CONS] Stat Comment: Consulting Provider: Johnny Collins Reason For Exam: Physician to Consult COURSE Hospital Course Hospital course: Interval history: Mr. Richards is a 71 year old with a history of hypertension, hyperlipidemia, COPD, DVT on Coumadin, developmental delay, chronic right lower extremity wound secondary to venous insufficiency was brought to the emergency room by his power of litigation attorney for right-sided chest pain. His chest pain been going on for several days, the patient had a fall at home prior to developing the chest pain. He says that he fell on his left outside while walking outside. The patient says his chest pain is pleuritic in nature and seems to be worsening. In the emergency department, patient had an oxygen requirement of 1 L/min. He has leukocytosis, a D-dimer was elevated therefore a CTA chest was ordered and reportedly shows a right upper lobe pneumonia, no PE reported. Hospital medicine was consulted for admission for the patient's oxygen requirement in the setting of pneumonia. The patient did not appear to be in any respiratory distress, he was on 1 L/min nasal cannula oxygen supplementation. He is accompa nied by his power of litigation attorney whom he lives with and who watches over him. She assisted with providing the history of the patient's recent symptoms. She says that he broke his teeth and cut his chin from his recent fall. The patient did come into the ED after the fall, the chin laceration was closed up at that time and appears stable at the time of admission. 1/ Wean off oxygen supplementation to room air, the patient is feeling better. Sputum culture pending. SARS-CoV-2, influenza A, influenza B, RSV PCR negative. Continue ceftriaxone and azithromycin. 03/13 Patient feeling okay. He does complain of cough. But denies shortness of breath at rest. 1/5 Per nursing patient started requiring oxygen again last night. No signs of aspiration when eating per nursing. Leukocytosis mildly worsened. We will check for bandemia and procalcitonin levels. Obtain chest x-ray. 03/15 Patient sitting in chair eating breakfast. No overnight or new complaints. Patient says he feels better but when asked describe specifically why feels better can really give an answer. Put out 4 L yesterday with Lasix. Echo pending. BNP yesterday 4700. f/u cxr. 03/16 Patient reports a cough but denies shortness of breath. Is on 1 L nasal cannula still. CRP still elevated. Concern for aspiration and still awaiting modified barium swallow today with speech. Chest x-ray follow-up yesterday did show improvement after diuresis. Patient did well this barium swallow study. No aspiration. Patient is on room air at rest. We will have respiratory therapy determine if he needs any oxygen with exertion. A: #Community-acquired pneumonia : #Acute decompensated CHF with mildly reduced EF and reduced RV systolic fxn, and severe Pulm HTN and valvular dz: -echo EF 50-55, RA severely dilated, mod TR, mildly reduced RV systolic dysfxn #Pulmonary Fibrosis: #Sever Pulm HTN: #Acute hypoxic respiratory failure: multifactorial 2/2 above #Pleuritic right chest pain: 2/2 pneumonia #Hypertension/Hyperlipidemia: #COPD: #h/o DVT: on Coumadin #RLE chronic wound #Developmental delay: Plan: -Pulmonology referral for severe hypertension, pulmonary fibrosis Discharge diagnosis: Pneumonia acute hypoxic respite failure CHF Secondary discharge diagnosis: Oral pharyngeal dysphagia severe pulm hypertension hypertension hyperlipidemia COPD pulmonary fibrosis history of DVT developmental delay chronic leg wound on the right Time Spent with Patient Time attestation: Total time spent providing and/or coordinating discharge services: Time spent: Greater than 30 minutes EXAM Constitutional Vitals: Temp Pulse Resp BP Pulse Ox O2 Del Method O2 Flow Rate 97.3 F 75 20 106/71 91 2 03/15/22 12:00 03/15/22 08:30 03/15/22 12:00 03/15/22 12:00 03/15/22 12:00 03/15/22 12:00 03/15/22 08:30 Discharge Data Data Completed and Pending Labs on day of discharge: Labs from last 24 hours 0103/15/22 03/15/22 09:29 05:25 05:25 WBC RBC Hgb Hct MCV MCH MCHC RDW Plt Count MPV Immature Gran % (Auto) Neut % (Auto) Lymph % (Auto) [place] % (Auto) Eos % (Auto) Baso % (Auto) Lymph # (Auto) [place] # (Auto) Eos # (Auto) Baso # (Auto) Immature Gran # Absolute Neutrophils PT 34.0 H INR 3.2 H Sodium 140 Potassium 4.1 Chloride 105 Carbon Dioxide 30 Anion Gap 5.0 L BUN 20 Creatinine 1.0 GFR Calculation 76 Glucose 84 Calcium 8.5 L C-Reactive Protein TNP 6.30 H NT-Pro-B Natriuret Pep 03/15/22 03/14/22 03/14/22 05:24 17:49 05:25 WBC 12.4 H RBC 4.65 Hgb 14.6 Hct 43.6 MCV 93.8 MCH 31.4 MCHC 33.5 RDW 14.6 H Plt Count 222 MPV 10.1 Immature Gran % (Auto) 0.4 Neut % (Auto) 70.9 Lymph % (Auto) 11.9 L [place] % (Auto) 13.2 H Eos % (Auto) 3.1 Baso % (Auto) 0.5 Lymph # (Auto) 1.48 L [place] # (Auto) 1.64 H Eos # (Auto) 0.39 Baso # (Auto) 0.06 Immature Gran # 0.05 Absolute Neutrophils 8.81 H PT INR Sodium Potassium Chloride Carbon Dioxide Anion Gap BUN Creatinine GFR Calculation Glucose Calcium C-Reactive Protein 4.50 H NT-Pro-B Natriuret Pep 4746.0 H Discharge Plan Patient/Caregiver Discharge Instructions Activity: increase activity as tolerated Diet: Regular Diet Instructions: Pneumonia (DC) Activity Restrictions/Additional Instructions: Referral to see marine erector in 1 to 2 weeks for severe pulmonary hypertension. Increase activity as tolerated. May resume regular diet as tolerated. Call your physician for sustained fever greater than 100.5, increase in weakness, increase in shortness of breath, or any questions/concerns. This discharge packet is provided to you to help keep you informed about your care. We want to ensure you get everything you need when you go home. You will also be receiving a call from us in a few days to follow up with you and see how you are doing since your discharge. This gives us a chance to listen to any concerns you maybe experiencing since you were discharged or any additional needs you may have, as well as providing us feedback on your care experience. We strive to always provide excellent care and thank you for your feedback and for choosing [facility]. Prescriptions: Continued dicyclomine 20 mg tablet 20 mg PO QPM Qty: 90 1RF divalproex 250 mg tablet,delayed release (DR/EC) 250 mg PO QPM Qty: 90 1RF folic acid 1 mg tablet 1 mg PO QDAY Qty: 90 1RF hydrochlorothiazide 12.5 mg tablet 12.5 mg PO QAM Qty: 90 3RF pramipexole 0.25 mg tablet 0.25 mg PO QPM Qty: 90 1RF pravastatin 40 mg tablet 40 mg PO QHS Qty: 90 1RF fluoxetine 40 mg capsule 40 mg PO QDAY Qty: 90 1RF warfarin 2 mg tablet 2 mg PO DAILY Protocol: Dose Management Condition: Friday Dose/Route: 2 mg Instruction: 1 x 2 mg tablet Condition: Friday Dose/Route: Hold Instruction: No doses Condition: Friday Dose/Route: 2 mg Instruction: 1 x 2 mg tablet Condition: Friday Dose/Route: 2 mg Instruction: 1 x 2 mg tablet Condition: Dose/Route: 2 mg Instruction: 1 x 2 mg tablet Condition: Friday Dose/Route: 2 mg Instruction: 1 x 2 mg tablet Condition: Friday Dose/Route: 2 mg Instruction: 1 x 2 mg tablet Protocol Text: Adjustment Start Date: Friday02/25/22 INR Value: 2.6 INR Date: 02/25/22 Recheck Date: 03/11/22 Rx Instructions: 6 days a week, skip on mondays per ponaresh spencer. Follow Up Plan Follow up with: Steven Pacheco DO [Primary Care Provider] - (The office will contact you with an appointment date/time for a hospital follow up.) Patient Disposition: Home Health Service Prognosis: Fair Overall status at discharge: patient is progressing back to baseline Discharge Orders: Discharge Order (Routine); Ordered 03/16/22 Ordered By: David Pressley [facility] VTE Deep Vein Thrombosis/Pulmonary Embolism Present on Admission: No
[2022-03-15] MEDS: DIVALPROEX SODIUM 250 MG TABLET PO SCH (20:31)
[2022-03-15] MEDS: SENNOSIDES 1 TABLET PO SCH (20:31)
[2022-03-15] MEDS: PRAMIPEXOLE 0.25 MG TABLET PO SCH (20:31)
[2022-03-15] MEDS: DICYCLOMINE 20 MG TABLET PO SCH (20:32)
[2022-03-15] MEDS: SIMVASTATIN 20 MG TABLET PO SCH (20:32)
[2022-03-16] MEDS: 0.9 % SODIUM CHLORIDE 10 ML SYRINGE IV SCH ×2 (06:31→13:48)
[2022-03-16 06:51] LABS: Basophils # (Auto) 0.06 K/mcL (0.00-0.30); Basophils % (Auto) 0.5 % (0.0-2.0); Eosinophils # (Auto) 0.61 K/mcL (0.00-0.70); Eosinophils % (Auto) 4.7 % (0.0-7.0); Hematocrit 45.8 % (40.1-51.0); Hemoglobin 15.5 g/dL (13.7-17.5); Lymphocytes # (Auto) 1.33 K/mcL (1.50-4.80); Lymphocytes % (Auto) 10.3 % (15.5-49.0); Mean Cell Volume 92.7 fL (80.0-100.0); Mean Corpuscular HGB Conc 33.8 g/dL (31.0-36.0); Mean Platelet Volume 10.2 fL (8.8-12.5); Monocytes # (Auto) 1.54 K/mcL (0.10-0.90); Monocytes % (Auto) 11.9 % (1.0-12.0); Neutrophils % (Auto) 72.1 % (38.0-78.0); Platelet Count 251 K/mcL (140-440); RBC 4.94 M/mcL (4.63-6.08); Red Cell Distribution Width 14.3 % (11.5-14.5)
[2022-03-16 07:09] LABS: INR 2.6 (0.9-1.1); Prothrombin Time 29.2 sec (11.9-14.5)
[2022-03-16 07:22] LABS: ALT/SGPT 17 U/L (<40); AST/SGOT 23 U/L (<40); Albumin 2.9 gm/dL (3.2-5.2); Alkaline Phosphatase 96 U/L (39-117); Bilirubin,Direct < 0.2 mg/dL (0-0.3); Bilirubin,Total 0.6 mg/dL (0.1-1.0); Blood Urea Nitrogen 27 mg/dL (8-23); Calcium 8.5 mg/dL (8.6-10.4); Carbon Dioxide 30 mmol/L (22-30); Chloride 102 mmol/L (96-108); Glomerular Filtration Rate 55; Glucose 79 mg/dL (70-105); Lactate Dehydrogenase 285 U/L (135-225); Phosphorous 3.7 mg/dL (2.5-4.5); Triglycerides 67 mg/dL (<150); Uric Acid 7.9 mg/dL (2.5-8.0)
[2022-03-16] MEDS: FLUoxetine HCL 20 MG CAPSULE PO SCH (08:40)
[2022-03-16] MEDS: DOCUSATE SODIUM 100 MG CAPSULE PO SCH (08:40)
[2022-03-16] MEDS: HYDROCHLOROTHIAZIDE 12.5 MG CAPSULE PO SCH (08:40)
[2022-03-16] MEDS: FOLIC ACID 1 MG TABLET PO SCH (08:41)
[2022-03-16] MEDS: cefTRIAXone 1 GM VIAL IV SCH (08:47)
--- NOTE | 2022-03-16 09:15 | Internal Med Progress Note ---
SUBJECTIVE Subjective Patient information: Note initiated : 03/16/22 at 9:12 am Service Date, if different from initiated Date: [] Patient: Tobias Richards 71 y/o M admitted on 03/11/22 for R side pain. Chief Complaint: [] Interval history: Mr. Richards is a 71 year old with a history of hypertension, hyperlipidemia, COPD, DVT on Coumadin, developmental delay, chronic right lower extremity wound secondary to venous insufficiency was brought to the emergency room by his power of workers compensation defense attorney for right-sided chest pain. His chest pain been going on for several days, the patient had a fall at home prior to developing the chest pain. He says that he fell on his left outside while walking outside. The patient says his chest pain is pleuritic in nature and seems to be worsening. In the emergency department, patient had an oxygen requirement of 1 L/min. He has leukocytosis, a D-dimer was elevated therefore a CTA chest was ordered and reportedly shows a right upper lobe pneumonia, no PE reported. Hospital medicine was consulted for admission for the patient's oxygen requirement in the setting of pneumonia. The patient did not appear to be in any respiratory distress, he was on 1 L/min nasal cannula oxygen supplementation. He is accompanied by his power of workers compensation defense attorney whom he lives with and who watches over him. She assisted with providing the history of the patient's recent symptoms. She says that he broke his teeth and cut his chin from his recent fall. The patient did come into the ED after the fall, the chin laceration was closed up at that time and appears stable at the time of admission. 1/ Wean off oxygen supplementation to room air, the patient is feeling better. Sputum culture pending. SARS-CoV-2, influenza A, influenza B, RSV PCR negative. Continue ceftriaxone and azithromycin. 03/13 Patient feeling okay. He does complain of cough. But denies shortness of breath at rest. 03/14 Per nursing patient started requiring oxygen again last night. No signs of aspiration when eating per nursing. Leukocytosis mildly worsened. We will check for bandemia and procalcitonin levels. Obtain chest x-ray. 03/15 Patient sitting in chair eating breakfast. No overnight or new complaints. Patient says he feels better but when asked describe specifically why feels better can really give an answer. Put out 4 L yesterday with Lasix. Echo pending. BNP yesterday 4700. f/u cxr. 03/16 Patient reports a cough but denies shortness of breath. Is on 1 L nasal cannula still. CRP still elevated. Concern for aspiration and still awaiting modified barium swallow today with speech. Chest x-ray follow-up yesterday did show improvement after diuresis. Review of Systems: denies headache/fever/chills/nausea/vomiting/chest or abdominal pain/diarrhea. Otherwise see above. Constitutional Vitals: Vital Signs Temp Pulse Resp BP Pulse Ox O2 Del Method O2 Flow Rate 98.7 F 68 20 109/72 93 1 03/16/22 08:00 03/16/22 08:00 03/16/22 08:00 03/16/22 08:00 03/16/22 08:00 03/16/22 08:00 03/16/22 08:00 Period Temp Pulse Resp BP Sys/[place] Pulse Ox O2 Del Method O2 Flow Rate Last 24 Hr 97.0 F-98.8 F 55-75 16-24 96-110/57-74 86-94 Nasal Cannula- Room Air 1-2 Intake and Output 03/15/22 03/16/22 03/16/22 19:59 03:59 11:59 Intake Total 1540 190 240 Output Total 550 Balance 1540 -360 240 Weight 59.466 kg Intake & Output: Intake & Output 03/15/22 03/16/22 03/16/22 19:59 03:59 11:59 Intake Total 1540 190 240 Output Total 550 Balance 1540 -360 240 Weight 59.466 kg Intake: IV 50 Oral 1250 190 240 GI Tube Flush 240 Output: Void Amount 550 Other: Meal Dinner popcicle Breakfast Percent of Meal Consumed 100% 100% 100% Feeding Ability Independent Independent Independent Urine Appearance Clear Urine Color Yellow Yellow Stool Size Large Stool Color Brown Stool Consistency Formed # Voids 1 Exam: General: Alert, Awake, No acute Distress Eyes/N/T: EOMI, Head/Neck: neck supple, Recent laceration on the chin, closed up and appears stable. CV: RRR, No murmurs, Pulm: Clear bilaterally today, no wheezing Abd: soft, nontender, +BS x4 Ext: no clubbing/cyanosis/edema Neuro: Alert, no focal deficits, moves all extremities, Skin: warm/dry OBJ DATA Labs CBC & Chem 7: 03/16/22 05:32 03/16/22 05:32 Labs: Abnormal Lab Results 03/16/22 03/16/22 03/16/22 05:33 05:32 05:32 WBC RBC RDW Lymph % (Auto) [place] % (Auto) Lymph # (Auto) [place] # (Auto) Immature Gran # Absolute Neutrophils PT 29.2 H INR 2.6 H Anion Gap BUN 27 H Creatinine 1.3 H Calcium 8.5 L Lactate Dehydrogenase 285 H C-Reactive Protein 7.00 H NT-Pro-B Natriuret Pep Total Protein Albumin 2.9 L 03/16/22 03/15/22 03/15/22 05:32 05:25 05:25 WBC 13.0 H RBC RDW Lymph % (Auto) 10.3 L [place] % (Auto) Lymph # (Auto) 1.33 L [place] # (Auto) 1.54 H Immature Gran # 0.07 H Absolute Neutrophils 9.34 H PT 34.0 H INR 3.2 H Anion Gap 5.0 L BUN Creatinine Calcium 8.5 L Lactate Dehydrogenase C-Reactive Protein 6.30 H NT-Pro-B Natriuret Pep Total Protein Albumin 03/15/22 03/14/22 03/14/22 05:24 17:49 05:25 WBC 12.4 H RBC RDW 14.6 H Lymph % (Auto) 11.9 L [place] % (Auto) 13.2 H Lymph # (Auto) 1.48 L [place] # (Auto) 1.64 H Immature Gran # Absolute Neutrophils 8.81 H PT INR Anion Gap BUN Creatinine Calcium Lactate Dehydrogenase C-Reactive Protein 4.50 H NT-Pro-B Natriuret Pep 4746.0 H Total Protein Albumin 03/14/22 03/14/22 03/14/22 05:25 05:24 05:24 WBC 13.9 H RBC 4.57 L RDW 14.6 H Lymph % (Auto) 9.7 L [place] % (Auto) Lymph # (Auto) 1.35 L [place] # (Auto) 1.26 H Immature Gran # 0.07 H Absolute Neutrophils 10.82 H PT 24.0 H INR 2.1 H Anion Gap BUN Creatinine Calcium Lactate Dehydrogenase 307 H C-Reactive Protein NT-Pro-B Natriuret Pep Total Protein 5.6 L Albumin 3.0 L Meds: Medications Acetaminophen (Acetaminophen 325 Mg Tablet) 650 mg PO Q6HP PRN; Protocol PRN Reason: Per Pain Protocol/Fever > 101 Last Admin: 03/13/22 15:34 Dose: 650 mg Hydrocodone Bitart/Acetaminophen (Hydrocodone/Apap 5/325mg Tablet) 1 tab PO Q4HP PRN; Protocol PRN Reason: Per Pain Protocol Last Admin: 03/15/22 13:17 Dose: 1 tab Albuterol Sulfate (Albuterol Sulfate 2.5 Mg/3 Ml Nebulizer) 2.5 mg NEB Q2HP PRN PRN Reason: Shortness Of Breath Ceftriaxone Sodium (Ceftriaxone 1 Gm Vial) 1 gm IV Q24H [facility]; Protocol Last Admin: 03/16/22 08:47 Dose: 1 gm Dicyclomine HCl (Dicyclomine 20 Mg Tablet) 20 mg PO QPM [facility] Last Admin: 03/15/22 20:32 Dose: 20 mg Divalproex Sodium (Divalproex Sodium 250 Mg Tablet) 250 mg PO QPM [facility] Last Admin: 03/15/22 20:31 Dose: 250 mg Docusate Sodium (Docusate Sodium 100 Mg Capsule) 100 mg PO BID [facility] Last Admin: 03/16/22 08:40 Dose: 100 mg Fluoxetine HCl (Fluoxetine Hcl 20 Mg Capsule) 40 mg PO DAILY [facility] Last Admin: 03/16/22 08:40 Dose: 40 mg Folic Acid (Folic Acid 1 Mg Tablet) 1 mg PO QDAY [facility] Last Admin: 03/16/22 08:41 Dose: 1 mg Hydrochlorothiazide (Hydrochlorothiazide 12.5 Mg Capsule) 12.5 mg PO DAILY [facility] Last Admin: 03/16/22 08:40 Dose: 12.5 mg Ondansetron HCl (Ondansetron 4 Mg/2 Ml Vial) 4 mg IV Q6HP PRN PRN Reason: Nausea And Vomiting Pramipexole Dihydrochloride (Pramipexole 0.25 Mg Tablet) 0.25 mg PO QPM [facility] Last Admin: 03/15/22 20:31 Dose: 0.25 mg Senna (Sennosides 1 Tablet) 2 tab PO [facility] Last Admin: 03/15/22 20:31 Dose: 2 tab Simvastatin (Simvastatin 20 Mg Tablet) 20 mg PO [facility] Last Admin: 03/15/22 20:32 Dose: 20 mg Sodium Chloride (0.9 % Sodium Chloride 10 Ml Syringe) 10 ml IV Q8 [facility] Last Admin: 03/16/22 06:31 Dose: 10 ml Warfarin Sodium (Warfarin Per Pharmacy) 1 order PO UD [facility] Warfarin Sodium (Warfarin 1 Mg Tablet) 1 mg PO DAILY@1400 [facility] Stop: 03/16/22 19:00 A/P Narrative A/P Narrative: A: #Community-acquired pneumonia : -leukocytosis now improving, no bandemia #Acute decompensated CHF w/sever Pulm HTN: -echo EF 50-55, RA severely dilated, mot TR, mildly reduced RV systolic dysfxn #?Aspirating: #Acute hypoxic respiratory failure: 2/2 above -on 1L, difficult to wean off #Pleuritic right chest pain: 2/2 pneumonia #Sever Pulm HTN: #Hypertension/Hyperlipidemia: #COPD not in exacerbation / Pulmonary fibrosis: #Possible pulmonary hypertension #h/o DVT: on Coumadin #RLE chronic wound #Developmental delay: Plan: -awaiting mod barium swallow -Ceftriaxone and azithromycin IV. -s/p IV lasix, hold -ST eval, could not rule out silent aspiration, mod barium swallow now pending -Analgesics for pleuritic chest pain. -Incentive spirometry. Albuterol nebs as needed. -Follow WBC -Continue home Depakote, fluoxetine, hydrochlorothiazide, dicyclomine. -Wound care consult. -ppx: Coumadin per pharmacy Time Spent With Patient Time: Total time spent is greater than 50% in coordination of care (as documented) at patient's floor/unit and/or counseling patient: Total time spent with greater than 50% in coordination of care (as documented) at patient's floor/unit and/or counseling patient:: 35 - 50 minutes QUALITY Stroke Symptom Onset Unknown: No VTE Deep Vein Thrombosis/Pulmonary Embolism Present on Admission: No
--- NOTE | 2022-03-16 13:36 | XRay Report ---
CLINICAL INFORMATION: Aspiration evaluation TECHNIQUE: Exam was performed in conjunction with speech pathology who administered thick and thin quality barium and observed deglutition under fluoroscopy. Total fluoroscopy time one minute eight seconds. Please see speech pathology report: FINDINGS: Tongue elevation and palate depression are mildly discoordinated resulting in delay propulsion of the barium bolus into the pharynx. The nasopharyngeus closes normally. Pharyngeal stripping, cricopharyngeal opening, and primary peristaltic initiation are all are normal. The epiglottis and vocal cords close normally - no evidence of descending aspiration on thin and thick quality barium IMPRESSION: Discoordinated tongue movement which mildly impeded transfer the barium bolus to the pharynx during the oral phase. Epiglottis and vocal cords close normally-no evidence of aspiration. Please see speech pathology report Interpreted and Authenticated by: Steven Costa 03/16/22
[2022-03-16] MEDS ORDERED: WARFARIN 1 MG TABLET PO SCH (14:00)
== END 2022-03-16 18:09 | disposition home health service (06) | DRG 193 ==
LOC: ED 16:10 → MEDSUR 20:47
PROVIDERS: ADMIT Internal Medicine; ATTEND Internal Medicine